=== PATIENT | male | born 1950 | race Caucasian/White ===

== ENCOUNTER 2017-03-26 21:11 | Emergency (ER) | payer MEDICARE ==
[2017-03-26 21:16] VITALS: TEMP 98.2
[2017-03-26] MEDS ORDERED: MAG HYDROX/AL HYDROX/SIMETH 30 ML, HYOSCYAMINE ELIXIR 10 ML, CIMETIDINE HCL 300 MG, LID... PO STA ×4 (21:37)
--- NOTE | 2017-03-26 21:40 | ED ---
Chest Pain HPI - General Source: patient Mode of arrival: ambulatory Limitations: no limitations - History of Present Illness MD Complaint: chest pain Onset/Timin -: hour(s) Onset: awoke with symptoms Pain Location: epigastric Pain Radiation: back Severity: moderate Quality: aching Consistency: constant Improves With: nothing Worsens With: eating Anginal Symptoms: nausea Treatments Prior to Arrival: none <Fabrizio Man - Last Filed: 03/27/17 01:34> <Maury Schwarz - Last Filed: 03/27/17 02:26> - General Chief Complaint: Chest Pain Stated Complaint: Chest Pain Time Seen by Provider: 03/26/17 21:22 - History of Present Illness Initial Comments: This patient is a 66-year-old man who presents to be evaluated for epigastric pain that he noticed after waking. The patient does state that he has similar episode a number of years ago, was seen by Dr. Gould. He states that they ended up treating him with a few days of [place] and the pain went away but no one can figure out exactly what was causing it. 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 (Fabrizio Man) - Related Data Home Medications Medication Instructions Recorded Confirmed Aspirin EC [Ecotrin Low Dose] 81 mg PO DAILY 03/26/17 03/26/17 Atorvastatin [Lipitor] 20 mg PO DAILY 03/26/17 03/26/17 Ibuprofen [Advil] 600 mg PO Q12H PRN 03/26/17 03/26/17 Losartan-Hctz 50-12.5 mg [Hyzaar 1 tab PO DAILY 03/26/17 03/26/17 50-12.5] Allergies Allergy/AdvReac Type Severity Reaction Status Date / Time levofloxacin [From Levaquin] Allergy Rash/Hives Verified 03/26/17 21:20 Penicillins Allergy Unknown Verified 03/26/17 21:20 Childhood Sulfa (Sulfonamide Allergy Rash/Hives Verified 03/26/17 21:20 Antibiotics) Review of Systems ROS Other: All systems not noted in ROS Statement are negative. Constitutional: Denies: fever, chills Respiratory: Denies: cough, dyspnea Cardiovascular: Denies: chest pain Gastrointestinal: Reports: as per HPI, abdominal pain, nausea. Denies: vomiting , diarrhea, constipation Genitourinary: Denies: dysuria, hematuria Musculoskeletal: Reports: back pain Skin: Denies: rash Neurological: Denies: headache, weakness, numbness <Fabrizio Man - Last Filed: 03/27/17 01:34> ROS Other: All systems not noted in ROS Statement are negative. <Maury Schwarz - Last Filed: 03/27/17 02:26> ROS Statement: Those systems with pertinent positive or pertinent negative responses have been documented in the HPI. EKG Findings - EKG Results: EKG: interpreted by ERMD, sinus rhythm, normal axis, normal QRS, normal ST/T, no acute changes EKG shows: bradycardia (Rate approximately 51 bpm) <Fabrizio Man - Last Filed: 03/27/17 01:34> Past Medical History Past Medical History: Atrial Fibrillation, Hyperlipidemia, Hypertension History of Any Multi-Drug Resistant Organisms: None Reported Past Surgical History: Cholecystectomy Past Psychological History: No Psychological Hx Reported Smoking Status: Former smoker Past Alcohol Use History: Occasional Past Drug Use History: None Reported <Fabrizio Man - Last Filed: 03/27/17 01:34> General Exam Limitations: no limitations General appearance: alert, in no apparent distress Head exam: Present: atraumatic, normocephalic Eye exam: Present: normal appearance. Absent: scleral icterus, conjunctival injection ENT exam: Present: normal oropharynx Neck exam: Present: normal inspection Respiratory exam: Present: normal lung sounds bilaterally. Absent: respiratory distress, wheezes, rales, rhonchi, stridor Cardiovascular Exam: Present: regular rate, normal rhythm, normal heart sounds. Absent: systolic murmur, diastolic murmur, rubs, gallop GI/Abdominal exam: Present: soft, tenderness (Mild epigastric tenderness without rebound or guarding), normal bowel sounds. Absent: distended, guarding , rebound, rigid, mass, pulsatile mass, hernia Extremities exam: Present: normal inspection, normal capillary refill. Absent: pedal edema, calf tenderness Back exam: Present: normal inspection. Absent: CVA tenderness (R), CVA tenderness (L) Neurological exam: Present: alert Skin exam: Present: warm, dry, intact, normal color. Absent: rash <Fabrizio Man - Last Filed: 03/27/17 01:34> Course <DonovanFabrizio - Last Filed: 03/27/17 01:34> <Maury Schwarz - Last Filed: 03/27/17 02:26> Vital Signs 03/26/17 03/26/17 21:13 23:15 Temperature 98.2 F Pulse Rate 52 L 53 L Respiratory 18 20 Rate Blood Pressure 165/89 160/100 O2 Sat by Pulse 98 Oximetry - Reevaluation(s) Reevaluation #1: 03/27/17 02:24 Chest x-ray shows no acute process. Computed tomography scan of the abdomen and pelvis shows no acute process. Patient reevaluated by myself, Dr. Schwarz. Patient resting comfortably in bed. Patient states he still has discomfort and requests Dilaudid. Patient would like to be discharged following this. Patient states discomfort is in the epigastric region and denies having any chest pain at all. Patient denies ever having chest discomfort. Sign out report from Dr. Fernández was also reported as epigastric pain, specifically not chest pain. Patient is explained limitations of cardiac testing in the emergency department and is explained that if there was any chest discomfort he would be advised to be admitted to the hospital. Patient refuses this and would like to go. Patient states he has had similar symptoms multiple times previously. Patient has even had his gallbladder taken out for this without improvement of symptoms. (Maury Schwarz) Disposition <Fabrizio Man - Last Filed: 03/27/17 01:34> Time of Disposition: 02:26 <Maury Schwarz - Last Filed: 03/27/17 02:26> Clinical Impression: Epigastric pain Disposition: HOME SELF-CARE Condition: Stable Instructions: Abdominal Pain (ED) Additional Instructions: Please follow-up tomorrow with your doctor. Return for chest pain, increased pain, nausea vomiting, worsening symptoms or any other concerns. Referrals: Gene White DO [Primary Care Provider] - 1-2 days
[2017-03-26 21:53] LABS: Basophils % (A) 1 %; CH 32.5; Eosinophils # (A) 0.2 k/uL (0-0.7); Eosinophils % (A) 3 %; HCT 39.8 % (39.0-53.0); HDW 2.36; HGB 13.5 gm/dL (13.0-17.5); Luc # (Auto) 0.13; Luc % (Auto) 2; Lymphocytes # (A) 1.9 k/uL (1.0-4.8); Lymphocytes % (A) 24 %; MCH 31.6 pg (25.0-35.0); MCHC 33.9 g/dL (31.0-37.0); MCV 93.2 fL (80.0-100.0); Mean Platelet Volume 7.4; Monocytes # (A) 0.4 k/uL (0-1.0); Monocytes % (A) 5 %; Neutrophils # (A) 5.4 k/uL (1.3-7.7); Neutrophils % (A) 67 %; RBC 4.27 m/uL (4.30-5.90); RDW 14.2 % (11.5-15.5); WBC 8.1 k/uL (3.8-10.6); WBC (Perox) 8.04
[2017-03-26 22:03] LABS: ALT 37 U/L (21-72); AST 30 U/L (17-59); Alkaline Phosphatase 53 U/L (38-126); Amylase 67 U/L (30-110); Anion Gap 8 mmol/L; Blood Urea Nitrogen 20 mg/dL (9-20); Calcium 9.7 mg/dL (8.4-10.2); Carbon Dioxide 27 mmol/L (22-30); Chloride 104 mmol/L (98-107); Glucose 120 mg/dL (74-99); Non-African American GFR(MDRD) >60 (>60 ml/min/1.73 sqM); Potassium 3.9 mmol/L (3.5-5.1); Sodium 139 mmol/L (137-145); Total Bilirubin 0.4 mg/dL (0.2-1.3)
--- NOTE | 2017-03-26 22:45 | XR ---
EXAM: XR Chest, 1 View CLINICAL HISTORY: Reason: Pain TECHNIQUE: Frontal view of the chest. COMPARISON: No relevant prior studies available. FINDINGS: Lungs: Unremarkable. No consolidation. Pleural space: Unremarkable. No pneumothorax. Heart: Unremarkable. No cardiomegaly. Mediastinum: Unremarkable. Bones/joints: Old fracture deformities no seen in the left eighth through 10th ribs. IMPRESSION: No acute findings.
[2017-03-26] MEDS ORDERED: MORPHINE SULFATE 4 MG/ML SYRINGE IV STA (23:15)
[2017-03-26] MEDS ORDERED: IOHEXOL 350 MG/ML 25 ML BOTTLE (ORAL USE) PO PRN (23:16)
[2017-03-26] MEDS ORDERED: RX INFO: IV CONTRAST WAS GIVEN 1 EACH MISC MISCELLANE PRN (23:16)
--- NOTE | 2017-03-27 01:46 | CT ---
EXAM: CT Abdomen and Pelvis With Intravenous Contrast CLINICAL HISTORY: Reason: Pain TECHNIQUE: Axial computed tomography images of the abdomen and pelvis with intravenous contrast. DLP is 581.90 mGy-cm. This CT exam was performed using one or more of the following dose reduction techniques: automated exposure control, adjustment of the mA and/or kV according to patient size, and/or use of iterative reconstruction technique. COMPARISON: No relevant prior studies available. FINDINGS: Lower thorax: No acute findings. ABDOMEN: Liver: Unremarkable. No mass. Gallbladder and bile ducts: Unremarkable. No calcified stones. No ductal dilation. Pancreas: Unremarkable. No mass. No ductal dilation. Spleen: Unremarkable. No splenomegaly. Adrenals: Unremarkable. No mass. Kidneys and ureters: Unremarkable. No solid mass. No hydronephrosis. Stomach and bowel: Unremarkable. No obstruction. No mucosal thickening. Appendix: No findings to suggest acute appendicitis. PELVIS: Bladder: Unremarkable. No mass. Reproductive: Unremarkable as visualized. ABDOMEN and PELVIS: Intraperitoneal space: Unremarkable. No free air. No significant fluid collection. Bones/joints: No acute fracture. No dislocation. Soft tissues: Unremarkable. Vasculature: Unremarkable. No abdominal aortic aneurysm. Lymph nodes: Unremarkable. No enlarged lymph nodes. IMPRESSION: Normal abdomen and pelvis CT.
[2017-03-27] MEDS ORDERED: HYDROmorphone 1 MG/ML 1 ML SYRINGE IVP STA (02:22)
[2017-03-27 03:16] VITALS: BP 136/71; PULSE 73; RESP 16
== END 2017-03-27 03:06 | disposition home or self-care (01) ==
LOC: EC 21:11
DX: R10.13 Epigastric pain (principal); R07.9 Chest pain, unspecified; R11.0 Nausea; I48.91 Unspecified atrial fibrillation; E78.5 Hyperlipidemia, unspecified; I10 Essential (primary) hypertension; Z90.49 Acquired absence of other specified parts of digestive tract; Z87.891 Personal history of nicotine dependence; Z79.82 Long term (current) use of aspirin; Z79.899 Other long term (current) drug therapy; Z88.0 Allergy status to penicillin; Z88.1 Allergy status to other antibiotic agents; Z88.2 Allergy status to sulfonamides
CPT/HCPCS: 99285 ×2; 96374 ×3; 96375 ×2; 96361; 99284; 36415 ×2; 93005; 80053 ×2; 82150 ×2; 83605; 83690 ×2; 84484; 85025 ×2; 81001; 71010; 74177; J2270; J1170; Q9967

== ENCOUNTER 2017-03-27 18:44 | Emergency (ER) | payer MEDICARE, OTHER ==
[2017-03-27 20:33] VITALS: TEMP 97.5
[2017-03-27] MEDS ORDERED: HYDROmorphone 1 MG/ML 1 ML SYRINGE IVP STA (20:39)
[2017-03-27] MEDS ORDERED: SODIUM CHLORIDE 0.9% 500 ML IV STA (20:39)
--- NOTE | 2017-03-27 20:56 | ED ---
Abdominal Pain HPI - General Chief Complaint: Abdominal Pain Stated Complaint: ABDOMINAL PAIN TO BACK Time Seen by Provider: 03/27/17 20:38 Source: patient, RN notes reviewed Mode of arrival: ambulatory Limitations: no limitations - History of Present Illness Initial Comments: This a 66-year-old male presents emergency Department chief complaint of epigastric and right upper abdominal pain. Patient states it started primary yesterday and worsened today. Patient states he was seen in emergency department had lab work, CT and x-rays no acute findings. Patient states that he's had problems like this in the past and they have never been able to figure out what causes his symptoms. Patient states he has an appointment with his primary care physician Dr. Zaman tomorrow. Patient denies any nausea, vomiting diarrhea constipation. He had a prior cholecystectomy. Patient states nothing seems to make symptoms better or worse at this time. He states he tried some ibuprofen at home with no relief. Denies any acid reflux. He states the pain radiates the right side does not radiate to his back. He denies any chest pain, shortness breath. Patient had no fevers no chills. - Related Data Home Medications Medication Instructions Recorded Confirmed Aspirin EC [Ecotrin Low Dose] 81 mg PO DAILY 03/26/17 03/27/17 Atorvastatin [Lipitor] 20 mg PO DAILY 03/26/17 03/27/17 Ibuprofen [Advil] 600 mg PO Q12H PRN 03/26/17 03/27/17 Losartan-Hctz 50-12.5 mg [Hyzaar 1 tab PO DAILY 03/26/17 03/27/17 50-12.5] Previous Rx's Medication Instructions Recorded Hydrocodone/Acetaminophen [[place] 1 tab PO Q6HR PRN #10 tab 03/27/17 5-325] Allergies Allergy/AdvReac Type Severity Reaction Status Date / Time levofloxacin [From Levaquin] Allergy Rash/Hives Verified 03/27/17 19:18 Penicillins Allergy Unknown Verified 03/27/17 19:18 Childhood Sulfa (Sulfonamide Allergy Rash/Hives Verified 03/27/17 19:18 Antibiotics) Review of Systems ROS Statement: Those systems with pertinent positive or pertinent negative responses have been documented in the HPI. ROS Other: All systems not noted in ROS Statement are negative. Past Medical History Past Medical History: Atrial Fibrillation, Hyperlipidemia, Hypertension History of Any Multi-Drug Resistant Organisms: None Reported Past Surgical History: Cholecystectomy Past Psychological History: No Psychological Hx Reported Smoking Status: Former smoker Past Alcohol Use History: Occasional Past Drug Use History: None Reported General Exam Limitations: no limitations General appearance: alert, in no apparent distress Respiratory exam: Present: normal lung sounds bilaterally. Absent: respiratory distress, wheezes, rales, rhonchi, stridor Cardiovascular Exam: Present: regular rate, normal rhythm, normal heart sounds. Absent: systolic murmur, diastolic murmur, rubs, gallop, clicks GI/Abdominal exam: Present: soft, tenderness (Mild epigastric and right upper quadrant tenderness), normal bowel sounds. Absent: distended, guarding, rebound , rigid Back exam: Absent: CVA tenderness (R), CVA tenderness (L) Skin exam: Present: warm, dry, intact, normal color. Absent: rash Course Vital Signs 03/27/17 03/27/17 03/27/17 19:16 20:32 21:28 Temperature 98.0 F 97.5 F L Pulse Rate 52 L 49 L 53 L Respiratory 18 17 19 Rate Blood Pressure 172/91 168/94 152/85 O2 Sat by Pulse 99 100 98 Oximetry Medical Decision Making - Medical Decision Making 66-year-old male present emergency department for abdominal pain. Patient was seen here yesterday and today. Patient's lab work is unremarkable. Patient CT was reviewed from yesterday show no acute abnormality. Patient had this problem in the past. He states he does feel better at this time. Patient was offered admission secondary to be the second visit for ongoing pain. Patient states that he wants to be discharged follow-up with Dr. Zaman tomorrow afternoon. - Lab Data Result diagrams: 03/27/17 20:56 03/27/17 20:56 Lab Results 03/27/17 03/27/17 03/27/17 Range/Units 20:56 20:56 20:56 WBC 7.5 (3.8-10.6) k/uL RBC 4.22 L (4.30-5.90) m/uL Hgb 13.5 (13.0-17.5) gm/dL Hct 38.7 L (39.0-53.0) % MCV 91.8 (80.0-100.0) fL MCH 32.1 (25.0-35.0) pg MCHC 35.0 (31.0-37.0) g/dL RDW 13.1 (11.5-15.5) % Plt Count 158 (150-450) k/uL Neutrophils % 75 % Lymphocytes % 17 % Monocytes % 5 % Eosinophils % 2 % Basophils % 0 % Neutrophils # 5.6 (1.3-7.7) k/uL Lymphocytes # 1.3 (1.0-4.8) k/uL Monocytes # 0.4 (0-1.0) k/uL Eosinophils # 0.2 (0-0.7) k/uL Basophils # 0.0 (0-0.2) k/uL Sodium 139 (137-145) mmol/L Potassium 3.8 (3.5-5.1) mmol/L Chloride 99 (98-107) mmol/L Carbon Dioxide 31 H (22-30) mmol/L Anion Gap 9 mmol/L BUN 15 (9-20) mg/dL Creatinine 0.80 (0.66-1.25) mg/dL Est GFR (MDRD) Af Amer >60 (>60 ml/min/1.73 sqM) Est GFR (MDRD) Non-Af >60 (>60 ml/min/1.73 sqM) Glucose 95 (74-99) mg/dL Plasma Lactic Acid Toy 1.0 (0.7-2.0) mmol/L Calcium 10.2 (8.4-10.2) mg/dL Total Bilirubin 0.7 (0.2-1.3) mg/dL AST 31 (17-59) U/L ALT 40 (21-72) U/L Alkaline Phosphatase 67 (38-126) U/L Total Protein 7.4 (6.3-8.2) g/dL Albumin 4.6 (3.5-5.0) g/dL Amylase 83 (30-110) U/L Lipase 109 (23-300) U/L Urine Color Urine Appearance (Clear) Urine pH (5.0-8.0) Ur Specific [place] (1.001-1.035) Urine Protein (Negative) Urine Glucose (UA) (Negative) Urine Ketones (Negative) Urine Blood (Negative) Urine Nitrite (Negative) Urine Bilirubin (Negative) Urine Urobilinogen (<2.0) mg/dL Ur Leukocyte Esterase (Negative) Urine RBC (0-5) /hpf Urine WBC (0-5) /hpf Amorphous Sediment (None) /hpf Urine Bacteria (None) /hpf Urine Mucus (None) /hpf 03/27/17 Range/Units 21:10 WBC (3.8-10.6) k/uL RBC (4.30-5.90) m/uL Hgb (13.0-17.5) gm/dL Hct (39.0-53.0) % MCV (80.0-100.0) fL MCH (25.0-35.0) pg MCHC (31.0-37.0) g/dL RDW (11.5-15.5) % Plt Count (150-450) k/uL Neutrophils % % Lymphocytes % % Monocytes % % Eosinophils % % Basophils % % Neutrophils # (1.3-7.7) k/uL Lymphocytes # (1.0-4.8) k/uL Monocytes # (0-1.0) k/uL Eosinophils # (0-0.7) k/uL Basophils # (0-0.2) k/uL Sodium (137-145) mmol/L Potassium (3.5-5.1) mmol/L Chloride (98-107) mmol/L Carbon Dioxide (22-30) mmol/L Anion Gap mmol/L BUN (9-20) mg/dL Creatinine (0.66-1.25) mg/dL Est GFR (MDRD) Af Amer (>60 ml/min/1.73 sqM) Est GFR (MDRD) Non-Af (>60 ml/min/1.73 sqM) Glucose (74-99) mg/dL Plasma Lactic Acid Toy (0.7-2.0) mmol/L Calcium (8.4-10.2) mg/dL Total Bilirubin (0.2-1.3) mg/dL AST (17-59) U/L ALT (21-72) U/L Alkaline Phosphatase (38-126) U/L Total Protein (6.3-8.2) g/dL Albumin (3.5-5.0) g/dL Amylase (30-110) U/L Lipase (23-300) U/L Urine Color Yellow Urine Appearance Cloudy (Clear) Urine pH 7.5 (5.0-8.0) Ur Specific [place] 1.018 (1.001-1.035) Urine Protein Negative (Negative) Urine Glucose (UA) Negative (Negative) Urine Ketones Trace H (Negative) Urine Blood Negative (Negative) Urine Nitrite Negative (Negative) Urine Bilirubin Negative (Negative) Urine Urobilinogen <2.0 (<2.0) mg/dL Ur Leukocyte Esterase Negative (Negative) Urine RBC 1 (0-5) /hpf Urine WBC 1 (0-5) /hpf Amorphous Sediment Rare H (None) /hpf Urine Bacteria Few H (None) /hpf Urine Mucus Rare H (None) /hpf Disposition Clinical Impression: Epigastric pain Disposition: HOME SELF-CARE Condition: Stable Instructions: Abdominal Pain (ED) Additional Instructions: Please return to the Emergency Department if symptoms worsen or any other concerns. Prescriptions: Hydrocodone/Acetaminophen [[place] 5-325] 1 tab PO Q6HR PRN #10 tab PRN Reason: Pain Referrals: Gene White DO [Doctor of Osteopathic Medicine] - 1-2 days Time of Disposition: 21:57
[2017-03-27 21:29] VITALS: RESP 19
[2017-03-27 21:29] LABS: Amorphous Sediment,Urine Rare /hpf; Appearance,Urine Cloudy (Clear); Bacteria,Urine Few /hpf; Bilirubin,Urine Negative (Negative); Glucose,Urine (UA) Negative (Negative); Ketones,Urine Trace (Negative); Leukocyte Esterase,Urine Negative (Negative); Mucus,Urine Rare /hpf; Nitrite,Urine Negative (Negative); PH, Urine 7.5 (5.0-8.0); Particle Count 7545; Protein,Urine Negative (Negative); RBC,Urine 1 /hpf (0-5); Specific Gravity,Urine 1.018 (1.001-1.035); UA Billing (MACRO vs. MICRO) MICRO; Urobilinogen,Urine <2.0 mg/dL (<2.0); WBC,Urine 1 /hpf (0-5)
[2017-03-27 21:29] LABS: ALT 40 U/L (21-72); AST 31 U/L (17-59); Alkaline Phosphatase 67 U/L (38-126); Amylase 83 U/L (30-110); Anion Gap 9 mmol/L; Blood Urea Nitrogen 15 mg/dL (9-20); Calcium 10.2 mg/dL (8.4-10.2); Carbon Dioxide 31 mmol/L (22-30); Chloride 99 mmol/L (98-107); Glucose 95 mg/dL (74-99); Non-African American GFR(MDRD) >60 (>60 ml/min/1.73 sqM); Potassium 3.8 mmol/L (3.5-5.1); Sodium 139 mmol/L (137-145); Total Bilirubin 0.7 mg/dL (0.2-1.3); Total Protein 7.4 g/dL (6.3-8.2)
[2017-03-27 21:35] LABS: Basophils % (A) 0 %; CH 32.1; CHCM 35.1; Eosinophils # (A) 0.2 k/uL (0-0.7); Eosinophils % (A) 2 %; HCT 38.7 % (39.0-53.0); HDW 2.42; HGB 13.5 gm/dL (13.0-17.5); Luc # (Auto) 0.08; Luc % (Auto) 1; Lymphocytes # (A) 1.3 k/uL (1.0-4.8); Lymphocytes % (A) 17 %; MCH 32.1 pg (25.0-35.0); MCV 91.8 fL (80.0-100.0); Mean Platelet Volume 6.8; Monocytes # (A) 0.4 k/uL (0-1.0); Monocytes % (A) 5 %; Neutrophils # (A) 5.6 k/uL (1.3-7.7); Neutrophils % (A) 75 %; RBC 4.22 m/uL (4.30-5.90); RDW 13.1 % (11.5-15.5); WBC 7.5 k/uL (3.8-10.6); WBC (Perox) 7.54
[2017-03-27 22:08] VITALS: BP 170/94; PULSE 57
== END 2017-03-27 22:08 | disposition home or self-care (01) ==
LOC: EC 18:44
DX: R10.13 Epigastric pain (principal); R10.11 Right upper quadrant pain; M54.9 Dorsalgia, unspecified; E78.5 Hyperlipidemia, unspecified; I10 Essential (primary) hypertension; Z87.891 Personal history of nicotine dependence; Z79.82 Long term (current) use of aspirin; Z79.899 Other long term (current) drug therapy; Z88.0 Allergy status to penicillin; Z88.1 Allergy status to other antibiotic agents; Z88.2 Allergy status to sulfonamides; Z90.49 Acquired absence of other specified parts of digestive tract
CPT/HCPCS: 36415; 80053; 82150; 83605; 83690; 85025; 81001; 99284; 96374; 96361; J1170

== ENCOUNTER 2017-09-05 16:56 | Emergency (ER) | payer MEDICARE, OTHER ==
[2017-09-05 17:19] LABS: Basophils % (A) 0 %; Eosinophils # (A) 0.1 k/uL (0-0.7); Eosinophils % (A) 1 %; HCT 42.9 % (39.0-53.0); HGB 14.3 gm/dL (13.0-17.5); Lymphocytes # (A) 0.9 k/uL (1.0-4.8); Lymphocytes % (A) 12 %; MCH 30.7 pg (25.0-35.0); MCHC 33.3 g/dL (31.0-37.0); MCV 92.2 fL (80.0-100.0); Mean Platelet Volume 6.6; Monocytes # (A) 0.2 k/uL (0-1.0); Monocytes % (A) 3 %; Neutrophils # (A) 5.9 k/uL (1.3-7.7); Neutrophils % (A) 83 %; Platelet Count 233 k/uL (150-450); RBC 4.65 m/uL (4.30-5.90); RDW 12.6 % (11.5-15.5); WBC 7.2 k/uL (3.8-10.6)
[2017-09-05 17:26] LABS: ALT 34 U/L (21-72); AST 26 U/L (17-59); Albumin 3.9 g/dL (3.5-5.0); Alkaline Phosphatase 61 U/L (38-126); Amylase 54 U/L (30-110); Anion Gap 12 mmol/L; Blood Urea Nitrogen 21 mg/dL (9-20); Calcium 9.1 mg/dL (8.4-10.2); Carbon Dioxide 25 mmol/L (22-30); Chloride 101 mmol/L (98-107); Glucose 121 mg/dL (74-99); Lipase 104 U/L (23-300); Potassium 3.7 mmol/L (3.5-5.1); Sodium 138 mmol/L (137-145); Total Bilirubin 0.5 mg/dL (0.2-1.3); Total Protein 6.6 g/dL (6.3-8.2)
[2017-09-05] MEDS ORDERED: DICYCLOMINE 20 MG TAB PO STA (17:58)
[2017-09-05] MEDS ORDERED: SODIUM CHLORIDE 0.9% 1,000 ML IV ONE (17:59)
[2017-09-05] MEDS ORDERED: ONDANSETRON 4 MG/2 ML VIAL IVP STA (18:10)
--- NOTE | 2017-09-05 18:12 | ED ---
Nausea/Vomiting/Diarrhea HPI - General Chief complaint: Nausea/Vomiting/Diarrhea Stated complaint: NVD Time Seen by Provider: 09/05/17 17:48 Source: patient, RN notes reviewed Mode of arrival: ambulatory Limitations: no limitations - History of Present Illness Initial comments: 67-year-old male presents emergency Department chief complaint of diarrhea. Patient states that he was started on doxycycline on Monday by medics rest. Patient states 5 minutes she was on azithromycin for acute bronchitis. Patient was also given steroids by his it help desk analyst. Patient states that he developed diarrhea last night and states that 20-30 episodes. He states it's all water. He has had salmonella in the past. Patient denies any fever or chills. Patient states that his lungs seem to be improving. He believes these had doxycycline the past and had no difficulty but he said this is unbearable. He did have some nausea vomiting last night. - Related Data Home Medications Medication Instructions Recorded Confirmed Aspirin EC [Ecotrin Low Dose] 81 mg PO DAILY 03/26/17 09/05/17 Atorvastatin [Lipitor] 20 mg PO DAILY 03/26/17 09/05/17 Losartan-Hctz 50-12.5 mg [Hyzaar 1 tab PO DAILY 03/26/17 09/05/17 50-12.5] Doxycycline Hyclate [Vibramycin] 100 mg PO BID 09/05/17 09/05/17 predniSONE See Taper PO DIRECTED 09/05/17 09/05/17 Allergies Allergy/AdvReac Type Severity Reaction Status Date / Time levofloxacin [From Levaquin] Allergy Rash/Hives Verified 09/05/17 18:34 Penicillins Allergy Unknown Verified 09/05/17 18:34 Childhood Sulfa (Sulfonamide Allergy Rash/Hives Verified 09/05/17 18:34 Antibiotics) Review of Systems ROS Statement: Those systems with pertinent positive or pertinent negative responses have been documented in the HPI. ROS Other: All systems not noted in ROS Statement are negative. Past Medical History Past Medical History: Atrial Fibrillation, Hyperlipidemia, Hypertension History of Any Multi-Drug Resistant Organisms: None Reported Past Surgical History: Cholecystectomy Past Psychological History: No Psychological Hx Reported Smoking Status: Former smoker Past Alcohol Use History: Occasional Past Drug Use History: None Reported General Exam Limitations: no limitations General appearance: alert, in no apparent distress Head exam: Present: atraumatic, normocephalic, normal inspection Neck exam: Present: normal inspection. Absent: tenderness, meningismus, lymphadenopathy Respiratory exam: Present: normal lung sounds bilaterally. Absent: respiratory distress, wheezes, rales, rhonchi, stridor Cardiovascular Exam: Present: regular rate, normal rhythm, normal heart sounds. Absent: systolic murmur, diastolic murmur, rubs, gallop, clicks GI/Abdominal exam: Present: soft, normal bowel sounds. Absent: distended, tenderness, guarding, rebound, rigid Back exam: Absent: CVA tenderness (R), CVA tenderness (L) Skin exam: Present: warm, dry, intact, normal color. Absent: rash Course Vital Signs 09/05/17 09/05/17 17:01 19:18 Temperature 97.4 F L Pulse Rate 81 60 Respiratory 18 18 Rate Blood Pressure 110/77 118/81 O2 Sat by Pulse 97 97 Oximetry - Reevaluation(s) Reevaluation #1: 09/05/17 19:32 Patient was updated on lab results. Patient is not had a bowel movement here. Patient states symptoms seem to be improving he has no nausea. We did discuss that this may be a viral diarrhea versus medication reaction. Patient states that is actually better from his cough congestion states that he discontinued his medications follow-up with primary care physician or it help desk analyst and return for any worsening symptoms. Medical Decision Making - Medical Decision Making 67-year-old male presented from for diarrhea. Patient lab work is unremarkable. Patient is improving here in emergency department this may be viral versus medication reaction. Patient advised to increase fluids and return for any worsening symptoms. - Lab Data Result diagrams: 09/05/17 17:04 09/05/17 17:04 Lab Results 09/05/17 09/05/17 09/05/17 Range/Units 17:04 17:04 18:38 WBC 7.2 (3.8-10.6) k/uL RBC 4.65 (4.30-5.90) m/uL Hgb 14.3 (13.0-17.5) gm/dL Hct 42.9 (39.0-53.0) % MCV 92.2 (80.0-100.0) fL MCH 30.7 (25.0-35.0) pg MCHC 33.3 (31.0-37.0) g/dL RDW 12.6 (11.5-15.5) % Plt Count 233 (150-450) k/uL Neutrophils % 83 % Lymphocytes % 12 % Monocytes % 3 % Eosinophils % 1 % Basophils % 0 % Neutrophils # 5.9 (1.3-7.7) k/uL Lymphocytes # 0.9 L (1.0-4.8) k/uL Monocytes # 0.2 (0-1.0) k/uL Eosinophils # 0.1 (0-0.7) k/uL Basophils # 0.0 (0-0.2) k/uL Sodium 138 (137-145) mmol/L Potassium 3.7 (3.5-5.1) mmol/L Chloride 101 (98-107) mmol/L Carbon Dioxide 25 (22-30) mmol/L Anion Gap 12 mmol/L BUN 21 H (9-20) mg/dL Creatinine 0.87 (0.66-1.25) mg/dL Est GFR (MDRD) Af Amer >60 (>60 ml/min/1.73 sqM) Est GFR (MDRD) Non-Af >60 (>60 ml/min/1.73 sqM) Glucose 121 H (74-99) mg/dL Calcium 9.1 (8.4-10.2) mg/dL Total Bilirubin 0.5 (0.2-1.3) mg/dL AST 26 (17-59) U/L ALT 34 (21-72) U/L Alkaline Phosphatase 61 (38-126) U/L Total Protein 6.6 (6.3-8.2) g/dL Albumin 3.9 (3.5-5.0) g/dL Amylase 54 (30-110) U/L Lipase 104 (23-300) U/L Urine Color Yellow Urine Appearance Cloudy (Clear) Urine pH 6.0 (5.0-8.0) Ur Specific [place] 1.025 (1.001-1.035) Urine Protein 1+ H (Negative) Urine Glucose (UA) Negative (Negative) Urine Ketones Negative (Negative) Urine Blood Negative (Negative) Urine Nitrite Negative (Negative) Urine Bilirubin Negative (Negative) Urine Urobilinogen 2.0 (<2.0) mg/dL Ur Leukocyte Esterase Negative (Negative) Urine RBC 4 (0-5) /hpf Urine WBC 2 (0-5) /hpf Calcium Oxalate Crystal Few H (None) /hpf Urine Mucus Many H (None) /hpf Disposition Clinical Impression: Diarrhea Disposition: HOME SELF-CARE Condition: Stable Instructions: Acute Diarrhea (ED) Additional Instructions: Please return to the Emergency Department if symptoms worsen or any other concerns. Referrals: Grabiel Zaman MD [Primary Care Provider] - 1-2 days Time of Disposition: 19:34
[2017-09-05 18:57] LABS: Appearance,Urine Cloudy (Clear); Bilirubin,Urine Negative (Negative); Blood,Urine Negative (Negative); Calcium Oxalate Crystals,Urine Few /hpf; Color,Urine Yellow; Glucose,Urine (UA) Negative (Negative); Ketones,Urine Negative (Negative); Leukocyte Esterase,Urine Negative (Negative); Mucus,Urine Many /hpf; Nitrite,Urine Negative (Negative); Protein,Urine 1+ (Negative); RBC,Urine 4 /hpf (0-5); Specific Gravity,Urine 1.025 (1.001-1.035); WBC,Urine 2 /hpf (0-5)
[2017-09-05 19:53] VITALS: BP 119/79; PULSE 66; RESP 15; TEMP 97.1
== END 2017-09-05 19:53 | disposition home or self-care (01) ==
LOC: EC 16:56
DX: R19.7 Diarrhea, unspecified (principal); R11.2 Nausea with vomiting, unspecified; J20.9 Acute bronchitis, unspecified; E78.5 Hyperlipidemia, unspecified; I10 Essential (primary) hypertension; Z87.891 Personal history of nicotine dependence; Z79.52 Long term (current) use of systemic steroids; Z79.82 Long term (current) use of aspirin; Z79.899 Other long term (current) drug therapy; Z88.0 Allergy status to penicillin; Z88.1 Allergy status to other antibiotic agents; Z88.2 Allergy status to sulfonamides; Z90.49 Acquired absence of other specified parts of digestive tract
CPT/HCPCS: 36415; 80053; 82150; 83690; 85025; 81001; 99284; 96374; 96361 ×2; J2405

== ENCOUNTER 2018-06-18 08:02 | Day surgery (SDC) | payer MEDICARE, OTHER ==
[2018-06-14 11:15] VITALS: BMI 21.8
[~2018-06-18 08:02] MED LIST: LACTATED RINGERS 1,000 ML IV SCH; LIDOCAINE 1% 20 ML VIAL (10MG/ML) FOR IV START INTRADERMA PRN
[2018-06-18 09:03] VITALS: TEMP 97.4
[2018-06-18] MEDS ORDERED: PROPOFOL 10 MG/ML 20 ML VIAL IV ONE (09:43)
--- NOTE | 2018-06-18 10:19 | P.PCN ---
Date of Procedure: 06/18/18 Procedure(s) Performed: Procedure: Total colonoscopy. Preoperative diagnosis: Screening for neoplasia. Postoperative diagnosis: Exam within normal limits. Preparation: HalfLytely prep. Sedation: Was provided by anesthesia. Brief clinical history: The patient is a 67-year-old male who is scheduled for this evaluation for screening for neoplasia age being his risk factor. He had a prior exam more than 10 years ago. He has no abdominal complaints, bleeding or anemia. Procedure: With the patient on his left lateral decubitus position and after informed consent and adequate sedation, the perianal area was inspected and it did not show any fissures or fistulas. There were no masses felt on digital rectal examination. The Olympus CFQ 160L video colonoscope was then inserted in the rectum in the usual fashion and advanced to the cecum. The preparation was good. The mucosa appeared healthy. No polyps or tumors were seen or any obvious diverticular disease or other pathology. I retroflexed the endoscope in the rectum before the endoscope was withdrawn. The patient tolerated the procedure well. Plan: The patient was reassured. He will follow up with you as planned and I recommended repeat exam in 10 years.
[2018-06-18 10:34] VITALS: RESP 16
[2018-06-18 10:48] VITALS: BP 127/82; PULSE 50
== END 2018-06-18 11:00 | disposition home or self-care (01) ==
LOC: ORWHC2ENDO 08:02
DX: Z12.11 Encounter for screening for malignant neoplasm of colon (principal); I48.91 Unspecified atrial fibrillation; I10 Essential (primary) hypertension; E78.5 Hyperlipidemia, unspecified; Z79.82 Long term (current) use of aspirin; Z79.899 Other long term (current) drug therapy; Z88.1 Allergy status to other antibiotic agents; Z88.0 Allergy status to penicillin; Z88.2 Allergy status to sulfonamides; Z87.891 Personal history of nicotine dependence
CPT/HCPCS: J2704; G0121

== ENCOUNTER 2018-07-05 02:18 | Emergency (ER) | payer MEDICARE, OTHER ==
[2018-07-05] MEDS ORDERED: SODIUM CHLORIDE 0.9% 1,000 ML IV STA (02:47)
[2018-07-05] MEDS ORDERED: ONDANSETRON 4 MG/2 ML VIAL IVP STA (02:47)
[2018-07-05] MEDS ORDERED: SODIUM CHLORIDE 0.9% 2,000 ML IV STA (02:47)
--- NOTE | 2018-07-05 02:52 | ED ---
Abdominal Pain HPI - General Chief Complaint: Abdominal Pain Stated Complaint: Abd pain Time Seen by Provider: 07/05/18 02:47 Source: patient Mode of arrival: ambulatory Limitations: no limitations - History of Present Illness Initial Comments: Rasheed is a pleasant 68-year-old gentleman with a history of alcohol-induced pancreatitis for which she was admitted to a hospital in [place] in October of this year. Patient reports that today he had 4 glasses of wine he is now experiencing severe epigastric abdominal pain identical to previous episode of pancreatitis. - Related Data Home Medications Medication Instructions Recorded Confirmed Aspirin EC [Ecotrin Low Dose] 81 mg PO DAILY 03/26/17 07/05/18 Atorvastatin [Lipitor] 20 mg PO DAILY 03/26/17 07/05/18 Losartan-Hctz 50-12.5 mg [Hyzaar 1 tab PO DAILY 03/26/17 07/05/18 50-12.5] Previous Rx's Medication Instructions Recorded Ondansetron [Zofran ODT] 4 mg PO Q8HR #12 tab 07/05/18 Allergies Allergy/AdvReac Type Severity Reaction Status Date / Time levofloxacin [From Levaquin] Allergy Rash/Hives Verified 06/14/18 11:09 Penicillins Allergy Unknown Verified 06/14/18 11:09 Childhood Sulfa (Sulfonamide Allergy Rash/Hives Verified 06/14/18 11:09 Antibiotics) Review of Systems ROS Statement: Those systems with pertinent positive or pertinent negative responses have been documented in the HPI. ROS Other: All systems not noted in ROS Statement are negative. Past Medical History Past Medical History: Atrial Fibrillation, Hyperlipidemia, Hypertension, Skin Disorder Additional Past Medical History / Comment(s): states "has a bancaid to opened area rt hand from precancerous lesion being removed", alcohol-induced pancreatitis History of Any Multi-Drug Resistant Organisms: None Reported Past Surgical History: Cholecystectomy Past Anesthesia/Blood Transfusion Reactions: No Reported Reaction Past Psychological History: No Psychological Hx Reported Smoking Status: Former smoker - Past Family History Father Family Medical History: Cancer Additional Family Medical History / Comment(s): lung General Exam Limitations: no limitations Course Vital Signs 07/05/18 07/05/18 02:22 05:15 Temperature 97.5 F L 98.6 F Pulse Rate 61 54 L Respiratory 20 19 Rate Blood Pressure 116/79 123/85 O2 Sat by Pulse 98 98 Oximetry Medical Decision Making - Medical Decision Making The patient was seen and evaluated, history is obtained from patient and at bedside Patient with a history of alcohol-induced pink return as, patient reports excessive drinking of having 4 glasses of wine today, now experiencing epigastric abdominal discomfort nausea similar to previous episode of pancreatitis Labs and imaging were ordered KUB x-ray with no acute findings Labs with mildly elevated lipase at 431 Labs otherwise with no significant abnormalities Patient reports significant improvement in discomfort after morphine. Results were discussed with the patient, I advised the patient at this time he can be placed in observation for intractable abdominal pain or if he would prefer he can be discharged home. Patient would prefer discharge home. Patient will be given IM morphine for pain management prior to discharge. Return parameters were discussed all questions pertaining to care were answered, patient was advised to abstain from alcohol and to follow-up with gastroenterology. - Lab Data Result diagrams: 07/05/18 02:45 07/05/18 02:45 Lab Results 07/05/18 07/05/18 07/05/18 Range/Units 02:45 02:45 02:45 WBC 7.0 (3.8-10.6) k/uL RBC 4.16 L (4.30-5.90) m/uL Hgb 12.5 L (13.0-17.5) gm/dL Hct 38.3 L (39.0-53.0) % MCV 92.0 (80.0-100.0) fL MCH 29.9 (25.0-35.0) pg MCHC 32.5 (31.0-37.0) g/dL RDW 13.6 (11.5-15.5) % Plt Count 162 (150-450) k/uL Neutrophils % 61 % Lymphocytes % 28 % Monocytes % 4 % Eosinophils % 4 % Basophils % 1 % Neutrophils # 4.3 (1.3-7.7) k/uL Lymphocytes # 2.0 (1.0-4.8) k/uL Monocytes # 0.3 (0-1.0) k/uL Eosinophils # 0.3 (0-0.7) k/uL Basophils # 0.0 (0-0.2) k/uL PT (9.0-12.0) sec INR (<1.2) APTT (22.0-30.0) sec Sodium 143 (137-145) mmol/L Potassium 4.6 (3.5-5.1) mmol/L Chloride 107 (98-107) mmol/L Carbon Dioxide 25 (22-30) mmol/L Anion Gap 11 mmol/L BUN 24 H (9-20) mg/dL Creatinine 0.92 (0.66-1.25) mg/dL Est GFR (CKD-EPI)AfAm >90 (>60 ml/min/1.73 sqM) Est GFR (CKD-EPI)NonAf 85 (>60 ml/min/1.73 sqM) Glucose 94 (74-99) mg/dL Calcium 9.3 (8.4-10.2) mg/dL Total Bilirubin 0.2 (0.2-1.3) mg/dL AST 32 (17-59) U/L ALT 33 (21-72) U/L Alkaline Phosphatase 42 (38-126) U/L Total Creatine Kinase 89 (55-170) U/L CK-MB (CK-2) 1.9 (0.0-2.4) ng/mL CK-MB (CK-2) Rel Index 2.1 Troponin I <0.012 (0.000-0.034) ng/mL Total Protein 6.7 (6.3-8.2) g/dL Albumin 4.1 (3.5-5.0) g/dL Amylase 98 (30-110) U/L Lipase 431 H (23-300) U/L 07/05/18 Range/Units 02:45 WBC (3.8-10.6) k/uL RBC (4.30-5.90) m/uL Hgb (13.0-17.5) gm/dL Hct (39.0-53.0) % MCV (80.0-100.0) fL MCH (25.0-35.0) pg MCHC (31.0-37.0) g/dL RDW (11.5-15.5) % Plt Count (150-450) k/uL Neutrophils % % Lymphocytes % % Monocytes % % Eosinophils % % Basophils % % Neutrophils # (1.3-7.7) k/uL Lymphocytes # (1.0-4.8) k/uL Monocytes # (0-1.0) k/uL Eosinophils # (0-0.7) k/uL Basophils # (0-0.2) k/uL PT 9.5 (9.0-12.0) sec INR 0.9 (<1.2) APTT 22.9 (22.0-30.0) sec Sodium (137-145) mmol/L Potassium (3.5-5.1) mmol/L Chloride (98-107) mmol/L Carbon Dioxide (22-30) mmol/L Anion Gap mmol/L BUN (9-20) mg/dL Creatinine (0.66-1.25) mg/dL Est GFR (CKD-EPI)AfAm (>60 ml/min/1.73 sqM) Est GFR (CKD-EPI)NonAf (>60 ml/min/1.73 sqM) Glucose (74-99) mg/dL Calcium (8.4-10.2) mg/dL Total Bilirubin (0.2-1.3) mg/dL AST (17-59) U/L ALT (21-72) U/L Alkaline Phosphatase (38-126) U/L Total Creatine Kinase (55-170) U/L CK-MB (CK-2) (0.0-2.4) ng/mL CK-MB (CK-2) Rel Index Troponin I (0.000-0.034) ng/mL Total Protein (6.3-8.2) g/dL Albumin (3.5-5.0) g/dL Amylase (30-110) U/L Lipase (23-300) U/L Disposition Clinical Impression: Alcohol induced acute pancreatitis Disposition: HOME SELF-CARE Condition: Stable Instructions: Pancreatitis (ED) Prescriptions: Ondansetron [Zofran ODT] 4 mg PO Q8HR #12 tab Is patient prescribed a controlled substance at d/c from ED?: No Referrals: Grabiel Zaman MD [Primary Care Provider] - 1-2 days Leo Healy MD [STAFF PHYSICIAN] - 1-2 days Time of Disposition: 04:55
[2018-07-05 03:08] LABS: Basophils % (A) 1 %; Eosinophils # (A) 0.3 k/uL (0-0.7); Eosinophils % (A) 4 %; HCT 38.3 % (39.0-53.0); HGB 12.5 gm/dL (13.0-17.5); Lymphocytes % (A) 28 %; MCH 29.9 pg (25.0-35.0); MCHC 32.5 g/dL (31.0-37.0); Mean Platelet Volume 6.6; Monocytes # (A) 0.3 k/uL (0-1.0); Monocytes % (A) 4 %; Neutrophils # (A) 4.3 k/uL (1.3-7.7); Neutrophils % (A) 61 %; Platelet Count 162 k/uL (150-450); RBC 4.16 m/uL (4.30-5.90); RDW 13.6 % (11.5-15.5)
[2018-07-05 03:11] LABS: ALT 33 U/L (21-72); AST 32 U/L (17-59); Albumin 4.1 g/dL (3.5-5.0); Alkaline Phosphatase 42 U/L (38-126); Amylase 98 U/L (30-110); Anion Gap 11 mmol/L; Blood Urea Nitrogen 24 mg/dL (9-20); Calcium 9.3 mg/dL (8.4-10.2); Carbon Dioxide 25 mmol/L (22-30); Chloride 107 mmol/L (98-107); Glucose 94 mg/dL (74-99); Lipase 431 U/L (23-300); Potassium 4.6 mmol/L (3.5-5.1); Sodium 143 mmol/L (137-145); Total Bilirubin 0.2 mg/dL (0.2-1.3); Total Protein 6.7 g/dL (6.3-8.2)
[2018-07-05 03:12] LABS: INR 0.9 (<1.2); Partial Thromboplastin Time 22.9 sec (22.0-30.0); Prothrombin Time 9.5 sec (9.0-12.0)
[2018-07-05 03:21] LABS: Creatine Kinase 89 U/L (55-170)
--- NOTE | 2018-07-05 03:34 | XR ---
EXAMINATION TYPE: XR KUB DATE OF EXAM: 07/05/2018 COMPARISON: 08/08/2011 HISTORY: Abdominal pain TECHNIQUE: 2 views upright FINDINGS: There is no sign of intestinal obstruction or pneumoperitoneum. Fecal pattern is normal. Th ere are clips from cholecystectomy. Lung bases are clear. There are no pathologic calcifications over the kidneys. IMPRESSION: Nonacute abdomen. No change.
[2018-07-05 03:35] LABS: Creatine Kinase MB 1.9 ng/mL (0.0-2.4); Troponin I <0.012 ng/mL (0.000-0.034)
[2018-07-05] MEDS ORDERED: MORPHINE SULFATE 4 MG/ML SYRINGE IVP STA (03:40)
[2018-07-05] MEDS ORDERED: MORPHINE SULFATE 4 MG/ML SYRINGE IM STA (04:54)
[2018-07-05 05:19] VITALS: BP 123/85; PULSE 54; RESP 19; TEMP 98.6
== END 2018-07-05 05:18 | disposition home or self-care (01) ==
LOC: EC 02:18
DX: K85.20 Alcohol induced acute pancreatitis without necrosis or infection (principal); R74.8 Abnormal levels of other serum enzymes; I48.91 Unspecified atrial fibrillation; E78.5 Hyperlipidemia, unspecified; I10 Essential (primary) hypertension; Z87.891 Personal history of nicotine dependence; Z79.82 Long term (current) use of aspirin; Z79.899 Other long term (current) drug therapy; Z88.0 Allergy status to penicillin; Z88.1 Allergy status to other antibiotic agents; Z88.2 Allergy status to sulfonamides; Z90.49 Acquired absence of other specified parts of digestive tract
CPT/HCPCS: 36415; 80053; 82150; 82550; 82553; 83690; 84484; 85025; 85610; 85730; 74018; 99284; 96374; 96375; 96361 ×2; 96372; J2270; J2405

== ENCOUNTER 2018-07-06 04:54 | Observation (INO) | payer MEDICARE, OTHER ==
[2018-07-06] MEDS ORDERED: MORPHINE SULFATE 4 MG/ML SYRINGE IV STA (05:03)
[2018-07-06] MEDS ORDERED: SODIUM CHLORIDE 0.9% 1,000 ML IV STA ×2 (05:03)
[2018-07-06] MEDS ORDERED: NALOXONE 0.4 MG/ML 1 ML VIAL IV PRN (05:08)
[2018-07-06] MEDS ORDERED: ONDANSETRON 4 MG/2 ML VIAL IVP PRN (05:08)
[2018-07-06 05:19] LABS: Basophils % (A) 0 %; Eosinophils # (A) 0.2 k/uL (0-0.7); Eosinophils % (A) 3 %; HCT 37.2 % (39.0-53.0); HGB 12.8 gm/dL (13.0-17.5); Lymphocytes # (A) 1.6 k/uL (1.0-4.8); Lymphocytes % (A) 21 %; MCH 30.8 pg (25.0-35.0); MCHC 34.5 g/dL (31.0-37.0); MCV 89.4 fL (80.0-100.0); Mean Platelet Volume 6.9; Monocytes # (A) 0.4 k/uL (0-1.0); Monocytes % (A) 6 %; Neutrophils # (A) 5.5 k/uL (1.3-7.7); Neutrophils % (A) 69 %; Platelet Count 142 k/uL (150-450); RBC 4.16 m/uL (4.30-5.90); RDW 13.3 % (11.5-15.5); WBC 7.9 k/uL (3.8-10.6)
--- NOTE | 2018-07-06 05:25 | ED ---
Abdominal Pain HPI - General Chief Complaint: Abdominal Pain Stated Complaint: abd pain Time Seen by Provider: 07/06/18 05:02 Source: patient Mode of arrival: ambulatory Limitations: no limitations - History of Present Illness Initial Comments: Rasheed is a 68-year-old gentleman with a past medical history of alcohol- induced pancreatitis which was diagnosed in October of this year while he was living in [place]. Patient reports he's been refraining from alcohol until the past month. He reports he's had occasional glasses of wine and has tolerated it well. Patient reports he had 4 glasses wine yesterday and developed severe epigastric abdominal pain and nausea which is identical to previous episode of pancreatitis. Patient was seen and evaluated in our emergency department he was noted to have a lipase of mid 400s, his pain was managed with a single dose of morphine his nausea resolved with Zofran. He was given a dose of morphine IM and discharged home. Patient reports that upon returning home he drinks some chicken soup and was feeling okay he then decided to have a milkshake. Patient reports his pain increased significantly which prompted him to return to the ER for further management. - Related Data Home Medications Medication Instructions Recorded Confirmed Aspirin EC [Ecotrin Low Dose] 81 mg PO DAILY 03/26/17 07/05/18 Atorvastatin [Lipitor] 20 mg PO DAILY 03/26/17 07/05/18 Losartan-Hctz 50-12.5 mg [Hyzaar 1 tab PO DAILY 03/26/17 07/05/18 50-12.5] Previous Rx's Medication Instructions Recorded Ondansetron [Zofran ODT] 4 mg PO Q8HR #12 tab 07/05/18 Allergies Allergy/AdvReac Type Severity Reaction Status Date / Time levofloxacin [From Levaquin] Allergy Rash/Hives Verified 06/14/18 11:09 Penicillins Allergy Unknown Verified 06/14/18 11:09 Childhood Sulfa (Sulfonamide Allergy Rash/Hives Verified 06/14/18 11:09 Antibiotics) Review of Systems ROS Statement: Those systems with pertinent positive or pertinent negative responses have been documented in the HPI. ROS Other: All systems not noted in ROS Statement are negative. Past Medical History Past Medical History: Atrial Fibrillation, Hyperlipidemia, Hypertension, Skin Disorder Additional Past Medical History / Comment(s): states rt hand from precancerous lesion being removed", alcohol-induced pancreatitis History of Any Multi-Drug Resistant Organisms: None Reported Past Surgical History: Cholecystectomy Past Anesthesia/Blood Transfusion Reactions: No Reported Reaction Past Psychological History: No Psychological Hx Reported Smoking Status: Former smoker Past Alcohol Use History: Occasional Past Drug Use History: None Reported - Past Family History Father Family Medical History: Cancer Additional Family Medical History / Comment(s): lung General Exam - General Exam Comments Initial Comments: Physical Exam GENERAL: Patient is well-developed and well-nourished. Patient is nontoxic and well- hydrated and is in no distress. HENT: Normocephalic, Atraumatic. EYES: PERRL, EOMI PULMONARY: Unlabored respirations. No audible rales rhonchi or wheezing was noted. CARDIOVASCULAR: There is a regular rate and rhythm without any murmurs gallops or rubs. ABDOMEN: Tenderness to palpation epigastrium Soft with normal bowel sounds. SKIN: Nonhealing lesion on the dorsum of the right hand : Deferred NEUROLOGIC: Patient is alert and oriented x3. Moving all extremities spontaneously MUSCULOSKELETAL: Normal extremities with adequate strength and full range of motion. No lower extremity swelling or edema. No calf tenderness. PSYCHIATRIC: Normal psychiatric evaluation. Limitations: no limitations Limitations: no limitations Course Vital Signs 07/06/18 04:55 Temperature 97.4 F L Pulse Rate 62 Respiratory 16 Rate Blood Pressure 150/98 O2 Sat by Pulse 98 Oximetry Medical Decision Making - Medical Decision Making She was seen and evaluated immediately upon return to the emergency department. Familiar with this patient as I evaluated him only hours ago. Patient attempted to manage mild pancreatitis at home however the pain is unbearable the patient return to the ER for further management. At this time I will repeat the labs and plan to admit the patient for pain management and alcohol-induced pancreatitis - Lab Data Result diagrams: 07/06/18 05:05 Lab Results 07/06/18 Range/Units 05:05 WBC 7.9 (3.8-10.6) k/uL RBC 4.16 L (4.30-5.90) m/uL Hgb 12.8 L (13.0-17.5) gm/dL Hct 37.2 L (39.0-53.0) % MCV 89.4 (80.0-100.0) fL MCH 30.8 (25.0-35.0) pg MCHC 34.5 (31.0-37.0) g/dL RDW 13.3 (11.5-15.5) % Plt Count 142 L (150-450) k/uL Neutrophils % 69 % Lymphocytes % 21 % Monocytes % 6 % Eosinophils % 3 % Basophils % 0 % Neutrophils # 5.5 (1.3-7.7) k/uL Lymphocytes # 1.6 (1.0-4.8) k/uL Monocytes # 0.4 (0-1.0) k/uL Eosinophils # 0.2 (0-0.7) k/uL Basophils # 0.0 (0-0.2) k/uL Disposition Clinical Impression: Alcohol induced acute pancreatitis, Abdominal pain Disposition: ADMITTED IP TO THIS HOSP
[2018-07-06 05:28] LABS: ALT 32 U/L (21-72); AST 33 U/L (17-59); Albumin 3.9 g/dL (3.5-5.0); Alkaline Phosphatase 54 U/L (38-126); Amylase 60 U/L (30-110); Anion Gap 8 mmol/L; Blood Urea Nitrogen 20 mg/dL (9-20); Carbon Dioxide 26 mmol/L (22-30); Chloride 104 mmol/L (98-107); Glucose 102 mg/dL (74-99); Lipase 375 U/L (23-300); Potassium 4.4 mmol/L (3.5-5.1); Sodium 138 mmol/L (137-145); Total Bilirubin 0.7 mg/dL (0.2-1.3); Total Protein 6.4 g/dL (6.3-8.2)
[2018-07-06] MEDS: MORPHINE SULFATE 4 MG/ML SYRINGE IV PRN ×5 (06:31→23:03)
[2018-07-06] MEDS: SODIUM CHLORIDE 0.9% 1,000 ML IV SCH ×4 (07:45→21:11)
[2018-07-06] MEDS: PANTOPRAZOLE 40 MG/10 ML VIAL IV SCH (08:31)
--- NOTE | 2018-07-06 10:50 | P.HPIM ---
History of Present Illness H&P Date: 07/06/18 Chief Complaint: Abdominal pain Pleasant 68-year-old gentleman with a past Benes is significant for alcohol- induced pancreatitis who was admitted in [place] in February of this year for the same, comes in with above-mentioned complaints. The patient says that he's been having pain in his epigastric and right upper quadrant since Monday that is since the past 5 days he said that it was starting to improve when he was trying to manage it at home. He had a few extra glasses of wine on Monday and since that time his pain got worse and last night he was having about 8 x 10 intensity pain in the epigastric area radiating to the right upper quadrant and sometimes to the back. He said that he was here in our ER 2 days ago and he was given morphine. Pain was better and he was discharged home. Patient otherwise does not complain of any nausea vomiting, no diarrhea or constipation , no chest racing heart, noting only numbness of his extremities, no cough or shortness of breath, no headache, no loss of vision or blurry vision, no itch and rash. Review of Systems REVIEW OF SYSTEMS: ENT: No diminished vision or hearing. CARDIOVASCULAR: Mentioned earlier. RESPIRATORY: As mentioned earlier. GI: No nauscea, vomiting or diarrhea.. The epigastric and right upper quadrant : No dysuria or retention. NERVOUS SYSTEM: No numbness or weakness. ALLERGY/IMMUNOLOGY: No asthma or hay fever. MUSCULOSKELETAL: As mentioned earlier. HEMATOLOGY/ONCOLOGY: No history of anemia. ENDOCRINE: No history of diabetes or hypothyroidism. CONSTITUTIONAL: As mentioned earlier. DERMATOLOGY: Negative. PSYCHIATRY: Mentioned earlier. RHEUMATOLOGY: Negative. Past Medical History Past Medical History: Atrial Fibrillation, Hyperlipidemia, Hypertension, Skin Disorder Additional Past Medical History / Comment(s): states rt hand from precancerous lesion being removed", alcohol-induced pancreatitis History of Any Multi-Drug Resistant Organisms: None Reported Past Surgical History: Cholecystectomy Past Anesthesia/Blood Transfusion Reactions: No Reported Reaction Past Psychological History: No Psychological Hx Reported Smoking Status: Former smoker Past Alcohol Use History: Occasional Past Drug Use History: None Reported - Past Family History Father Family Medical History: Cancer Additional Family Medical History / Comment(s): lung Mother Family Medical History: Diabetes Mellitus Sister(s) Family Medical History: Renal Disease Medications and Allergies Home Medications Medication Instructions Recorded Confirmed Type Aspirin EC [Ecotrin Low Dose] 81 mg PO DAILY 03/26/17 07/06/18 History Atorvastatin [Lipitor] 20 mg PO DAILY 03/26/17 07/06/18 History Losartan-Hctz 50-12.5 mg [Hyzaar 1 tab PO DAILY 03/26/17 07/06/18 History 50-12.5] Ondansetron [Zofran ODT] 4 mg PO Q8HR #12 tab 07/05/18 07/06/18 Rx Allergies Allergy/AdvReac Type Severity Reaction Status Date / Time levofloxacin [From Levaquin] Allergy Rash/Hives Verified 07/06/18 08:18 Penicillins Allergy Unknown Verified 07/06/18 08:18 Childhood Sulfa (Sulfonamide Allergy Rash/Hives Verified 07/06/18 08:18 Antibiotics) Physical Exam Vitals: Vital Signs Temp Pulse Pulse Resp BP BP Pulse Ox 07/06/18 08:00 12 07/06/18 07:00 97.9 F 57 L 12 158/93 97 07/06/18 06:49 45 L 07/06/18 06:04 97.9 F 47 L 16 153/90 97 07/06/18 04:55 97.4 F L 62 16 150/98 98 Intake and Output 07/05/18 07/06/18 07/06/18 22:59 06:59 14:59 Intake Total 1000 Balance 1000 Intake: Intake, IV Titration 1000 Amount Sodium Chloride 0.9% 1, 1000 000 ml @ 999 mls/hr IV . Q1H1M STA Rx#:[id number] Other: Voiding Method Toilet Weight 70.307 kg On exam, alert and oriented x3. HEENT: Conjunctivae normal. eyes normal. NECK: No JVD. No thyroid enlargement. No LNs CARDIOVASCULAR: S1, S2 muffled. No murmur RESPIRATION: Breath sounds diminished in the bases. No rhonchi or crackles. No bronchial breathing. ABDOMEN: Soft, tender in the epigastric and the right upper quadrant. No guarding. no masses palpable. No ascites, No hepatosplenomegaly.Bowel sounds heard. LEGS: No edema. no swelling NERVOUS SYSTEM: Cranial N 2-12 grossly normal. Moves all 4 limbs. No focal deficits. No sensory deficit. No signs of cerebellar dysfucntion. Skin: no ulcer no rash Joints: No active swelling. No inflammation. Lymphatic system. No LN neck axilla or groin. Results CBC & Chem 7: 07/06/18 05:05 07/06/18 05:05 Labs: Abnormal Lab Results - Last 24 Hours (Table) 07/06/18 07/06/18 Range/Units 05:05 05:05 RBC 4.16 L (4.30-5.90) m/uL Hgb 12.8 L (13.0-17.5) gm/dL Hct 37.2 L (39.0-53.0) % Plt Count 142 L (150-450) k/uL Glucose 102 H (74-99) mg/dL Lipase 375 H (23-300) U/L Thrombosis Risk Factor Assmnt - Choose All That Apply Any of the Below Risk Factors Present?: Yes Each Risk Factor Represents 2 Points: Age 61-74 years Thrombosis Risk Factor Assessment Total Risk Factor Score: 2 Thrombosis Risk Factor Assessment Level: Low Risk Assessment and Plan Assessment: - Acute pancreatitis probably alcohol induced - history of high blood pressure on losartan/HCTZ - Hyperlipidemia - History of A. fib as per the ER notes Plan: - Patient is admitted to [facility] - Patient says that he still has abdominal pain mostly in the right upper quadrant area radiating from the epigastric area - For now we'll continue morphine when necessary, nothing by mouth, IV fluids.- - He says that he is taking Hyzaar for the past 10-15 years and had no problems with it. - For now we will hold off on the Hyzaar as it is known to cause pancreatitis. He might need to discuss with his primary care doctor regarding changing the antihypertensive depending upon the PCPs discretion - DVT and GI prophylaxis - We'll order for lab work in the morning - History the patient pain continues, we'll get a CAT scan at that time - Patient is full code Time with Patient: Greater than 30
[2018-07-06] MEDS: HEPARIN SODIUM,PORCINE 5,000 UNIT/ML 1 ML VIAL SQ SCH ×2 (16:03→23:03)
--- NOTE | 2018-07-06 18:02 | CONS ---
CONSULTATION 68-year-old gentleman who was in the ER recently. He sees my partner, Dr. Zaman as his primary. He was in the ER a couple days ago and had alcohol induced pancreatitis was seen, evaluated and sent home on pain medications. More recently came back into the emergency room on the , complaining of pain that could not be relieved by the pain medications they gave him. The patient does drink wine on a regular basis and has been known to drink heavily in the past. The patient had 4 glasses of wine the day prior to admission. Suffered severe epigastric abdominal pain with nausea. The patient was again evaluated in the emergency room and admitted with a diagnosis of pancreatitis. His initial lipase was over 400 and his repeat lipase was nearly 400. Anyway, the patient was admitted for fluids and pain management. I had a long talk with Mikie today about the importance of alcohol cessation. I doubt he will stop drinking. Anyway, his pain is much better controlled. His nausea is much better controlled. HOME MEDICATIONS: Include aspirin and Lipitor. He is also on losartan HCTZ. He also was given some Zofran. MEDICAL HISTORY: Acute pancreatitis, chronic alcohol abuse, hyperlipidemia, hypertension. Atrial fibrillation and actinic keratosis. ALLERGIES: INCLUDE LEVAQUIN, PENICILLIN, SULFA ANTIBIOTICS. PAST SURGERY HISTORY: Surgical history includes cholecystectomy. SOCIAL HISTORY: Positive for previous tobacco use. Does drink alcohol. No illicit drug use. FAMILY HISTORY: Positive for cancer. REVIEW OF SYSTEMS: CONSTITUTIONAL: Negative. NEUROLOGICAL: Negative. HEENT negative. Cardiovascular negative. Pulmonary negative. GI acute pancreatitis/abdominal pain. negative. Rheumatologic/ hematologic/ negative. Endocrinologic negative. Dermatologic negative. Vital signs are reviewed. Temperature 97.9, heart rate 57, respiratory 12, blood pressure 158/93, mean 114, room air saturation 97%. Appears no acute distress. HEENT examination is grossly unremarkable. Mucous membranes are moist. No oral lesions. NECK: Supple. Full range of motion. No adenopathy or thyromegaly. Cardiovascular examination reveals regular rhythm and rate. S1, S2 normal. No S3, S4, or murmur. LUNGS: Clear. Breath sounds equal. No adventitious lung sounds. Abdomen reveals to be soft. There is tenderness in the epigastric area. Bowel sounds are noted. No masses. Extremities are intact. No cyanosis, clubbing, or edema. Skin without rash. Neurologic examination is brief but nonfocal. LABS: Reviewed. White count 7.9, hemoglobin 12.8, hematocrit 37.2, platelet count 142,000. Glucose 102. Sodium, potassium, chloride, CO2 all normal. Anion gap normal. Kidney function normal. Amylase 60, lipase 375. Medications are reviewed. He is on subcu heparin, morphine for pain control, Narcan, Zofran, Protonix, and a basic IV. No x-rays have been done. ASSESSMENT: 1. Acute pancreatitis secondary to alcohol abuse. 2. Previous episodes of acute pancreatitis. 3. History of atrial fibrillation. 4. History of hyperlipidemia. 5. History of hypertension. 6. History of multiple actinic keratoses. PLAN: The patient is doing reasonably well. He is getting fluid hydration and narcotics for pain control. I had a long talk with him about the importance of alcohol cessation. The patient may or may not quit drinking. The patient recently was seen by 1 of the dermatologists and had some liquid nitrogen treatments to his actinic keratosis. In addition, he uses 5 fluorouracil to some of these lesions as well. The patient is doing well otherwise. We will continue to follow. We will make sure that a copy of this note goes to his primary caregiver, my partner, Dr. Zaman. Discharge hopefully within a couple days. No additional recommendations are made. We will watch the patient carefully for alcohol withdrawal symptoms. MMODL / IJN: [id number] /
[2018-07-07] MEDS: SODIUM CHLORIDE 0.9% 1,000 ML IV SCH ×3 (01:35→11:03)
[2018-07-07] MEDS: MORPHINE SULFATE 4 MG/ML SYRINGE IV PRN (04:39)
[2018-07-07 07:36] LABS: Anion Gap 7 mmol/L; Blood Urea Nitrogen 11 mg/dL (9-20); Calcium 8.2 mg/dL (8.4-10.2); Carbon Dioxide 25 mmol/L (22-30); Chloride 107 mmol/L (98-107); Glucose 81 mg/dL (74-99); Lipase 102 U/L (23-300); Potassium 4.1 mmol/L (3.5-5.1); Sodium 139 mmol/L (137-145)
[2018-07-07] MEDS: HEPARIN SODIUM,PORCINE 5,000 UNIT/ML 1 ML VIAL SQ SCH (09:00)
[2018-07-07] MEDS: PANTOPRAZOLE 40 MG/10 ML VIAL IV SCH (09:00)
[2018-07-07 09:09] VITALS: BP 139/82; PULSE 60; RESP 14; TEMP 98.4
--- NOTE | 2018-07-07 14:00 | P.DS ---
Providers Date of admission: 07/06/18 05:10 Expected date of discharge: 07/07/18 Attending physician: Tima Hutson Primary care physician: Grabiel Austyn Layton Hospital Course: Discharge diagnosis - Acute pancreatitis probably alcohol related - Hypertension - Hyperlipidemia - History of A. fib as per your notes Very pleasant 68-year-old gentleman was admitted for abdominal pain. His lipase was high risk was diagnosed with hepatitis. Was kept nothing by mouth, pain control and IV fluids. His lipase levels slowly started coming down. He was tolerating diet. Today that his on 07/07/2018 His pain is gone and patient complains of no more pain. He is tolerating diet. He otherwise complains of no nausea vomiting, or diarrhea constipation, no tingling numbness of the extremities, and additional rash On exam, alert and oriented x3. HEENT: Conjunctivae normal. eyes normal. NECK: No JVD. No thyroid enlargement. No LNs CARDIOVASCULAR: [place] RESPIRATION: Breath sounds diminished in the bases. No rhonchi or crackles. No bronchial breathing. ABDOMEN: Soft, nontender . No guarding. no masses palpable. No ascites, No hepatosplenomegaly.Bowel sounds heard. LEGS: No edema. no swelling NERVOUS SYSTEM: Cranial N 2-12 grossly normal. Moves all 4 limbs. No focal deficits. No sensory deficit. No signs of cerebellar dysfucntion. Skin: no ulcer no rash Joints: No active swelling. No inflammation. Lymphatic system. No LN neck axilla or groin. Patient does be discharged home and follow up with his primary care doctor Patient Condition at Discharge: Good Plan - Discharge Summary Discharge Rx Participant: Yes New Discharge Prescriptions: Continue Losartan-Hctz 50-12.5 mg [Hyzaar 50-12.5] 1 tab PO DAILY Atorvastatin [Lipitor] 20 mg PO DAILY Aspirin EC [Ecotrin Low Dose] 81 mg PO DAILY Ondansetron [Zofran ODT] 4 mg PO Q8HR #12 tab Discharge Medication List Aspirin EC [Ecotrin Low Dose] 81 mg PO DAILY 03/26/17 [History] Atorvastatin [Lipitor] 20 mg PO DAILY 03/26/17 [History] Losartan-Hctz 50-12.5 mg [Hyzaar 50-12.5] 1 tab PO DAILY 03/26/17 [History] Ondansetron [Zofran ODT] 4 mg PO Q8HR #12 tab 07/05/18 [Rx] Follow up Appointment(s)/Referral(s): Grabiel Zaman MD [Primary Care Provider] - 1-2 days Activity/Diet/Wound Care/Special Instructions: Pls f/u with PCP and discuss regarding the losartan/hctz if you have abd pain again . Discharge Disposition: HOME SELF-CARE
--- NOTE | 2018-07-07 18:00 | PN ---
PROGRESS NOTE This is a 68-year-old male who was admitted with a diagnosis of acute pancreatitis secondary to alcohol use/abuse. He has a previous episode of acute pancreatitis as well. He also has a history of atrial fibrillation, hyperlipidemia, hypertension, and multiple actinic keratoses for which he is using 5 fluorouracil. The patient is doing reasonably well. He states he is still having some pain. He is getting IV fluids and pain control. I did chemical dependency counselor him yesterday extensively about the importance of smoking cessation. I did warn him that he may developed pancreatic endocrine and/or exocrine insufficiency, which would require enzyme replacement or insulin respectively. Anyway, he does understand. His primary care physician is my partner, Dr. Zaman. Current vital signs include temperature 98.4, heart rate 60, respiratory rate 14 , blood pressure 139/82, mean 101, room air saturation 97%. Appears in no acute distress. HEENT examination is grossly unremarkable. Mucous membranes are moist. No oral lesions. Neck is supple. Full range of motion. No adenopathy or thyromegaly. Cardiovascular examination reveals regular rhythm and rate. S1, S2 normal. No S3, S4, or murmur. Lungs reveal clear breath sounds. No wheezes, rhonchi, or crackles. Abdomen is soft. Some mild tenderness appreciated. Bowel sounds are noted. Extremities are intact. No cyanosis, clubbing, or edema. Skin without rash. Neurologic examination is brief but nonfocal. LAB DATA: Reviewed. Currently, his sodium is 139, potassium 4.1, chloride 107, CO2 of 25 , anion gap is 7, BUN and creatinine were 11 and 0.81. His glucose is 81, calcium is 8.2, and his lipase is down from 375 to 102. It was previously 400. No new x-rays to report. MEDICATIONS: Reviewed. He is currently on IV fluids and morphine. He is also on a proton pump inhibitor. ASSESSMENT: 1. Acute pancreatitis secondary to alcohol use/abuse. 2. Previous episodes of acute pancreatitis. 3. History of atrial fibrillation. 4. Hyperlipidemia. 5. History of hypertension. 6. History of multiple actinic keratoses. Plan dated 07/07/2018 Currently, the patient is getting fluids and IV morphine. The patient's lipase has come down nicely. Labs have been reviewed. The patient states that his pain is much better controlled. He is not having any respiratory issues. The patient has been counseled extensively about the importance of curtailing his drinking. I did warn him about the possibility of pancreatic and endocrine and/or exocrine insufficiency. He does understand. Lab data includes a sodium, potassium, chloride and CO2, all of which are normal. BUN and creatinine were 11 and 0.81. Lipase is 102 down from 375. MMODL / IJN: [id number] / [facility]
== END 2018-07-07 14:42 | disposition home or self-care (01) ==
LOC: EC 04:54 → 4SSUR 05:10
PROVIDERS: ADMIT Internal Medicine; ATTEND Internal Medicine
DX: K85.90 Acute pancreatitis without necrosis or infection, unspecified (principal); F10.10 Alcohol abuse, uncomplicated; I10 Essential (primary) hypertension; E78.5 Hyperlipidemia, unspecified; I48.91 Unspecified atrial fibrillation; L57.0 Actinic keratosis; K75.9 Inflammatory liver disease, unspecified; Z90.49 Acquired absence of other specified parts of digestive tract; Z87.891 Personal history of nicotine dependence; Z83.3 Family history of diabetes mellitus; Z80.1 Family history of malignant neoplasm of trachea, bronchus and lung; Z79.82 Long term (current) use of aspirin; Z79.899 Other long term (current) drug therapy; Z88.1 Allergy status to other antibiotic agents; Z88.0 Allergy status to penicillin; Z88.2 Allergy status to sulfonamides
CPT/HCPCS: 96376 ×2; 96361 ×3; 96372 ×2; 96374; 99284; 36415; 80053; 80048; 82150; 83690 ×2; 85025; G0378 ×2; J2270 ×2; J1644 ×2; C9113 ×2

== ENCOUNTER 2019-08-16 19:58 | Emergency (ER) | payer MEDICARE, OTHER ==
[2019-08-16 20:08] VITALS: RESP 20; TEMP 97.7
[2019-08-16] MEDS ORDERED: SODIUM CHLORIDE 0.9% 500 ML 500 ML IV STA (20:37)
[2019-08-16] MEDS ORDERED: SODIUM CHLORIDE 0.9% 1,000 ML IV STA (20:37)
[2019-08-16] MEDS ORDERED: ONDANSETRON 4 MG/2 ML VIAL IVP STA (20:37)
[2019-08-16] MEDS ORDERED: MORPHINE SULFATE 4 MG/ML SYRINGE IV STA (20:37)
--- NOTE | 2019-08-16 20:40 | ED ---
Abdominal Pain HPI - General Chief Complaint: Abdominal Pain Stated Complaint: Abd Pain Time Seen by Provider: 08/16/19 20:10 Source: patient Mode of arrival: ambulatory Limitations: no limitations - History of Present Illness Initial Comments: 69-year-old male patient with past medical history significant for pancreatitis presents to the emergency department today for evaluation of upper abdominal pain. Patient states the pain started around 0200 this morning. Patient admits that he did drink alcohol 2-3 days in a row which she knows causes flares of his pancreatitis. Patient states that this pain feels similar to his previous pancreatitis episodes. States his pain is located in the upper abdomen radiates to the right side. Pain radiates to his back. Denies any nausea or vomiting with this. States he did attempt to decreased food intake today which did not seem to help. States this evening his pain flared out of control and he presen henrry here for further evaluation. Denies any fever or chills. Denies any constipation, diarrhea, or urinary symptoms. States he has had cholecystectomy in the past but no other abdominal surgeries. Denies any chest pain or shortness of breath. Patient denies any recent rash, numbness, tingling, d izziness, weakness, hematuria, dysuria, urinary urgency, urinary frequency, headache, visual changes, or any other complaints. - Related Data Home Medications Medication Instructions Recorded Confirmed Aspirin EC [Ecotrin Low Dose] 81 mg PO DAILY 03/26/17 07/06/18 Atorvastatin [Lipitor] 20 mg PO DAILY 03/26/17 07/06/18 Losartan-Hctz 50-12.5 mg [Hyzaar 1 tab PO DAILY 03/26/17 07/06/18 50-12.5] Previous Rx's Medication Instructions Recorded Ondansetron [Zofran ODT] 4 mg PO Q8HR #12 tab 07/05/18 Hydrocodone/Acetaminophen [Bex[place] 1 tab PO Q6HR PRN #12 tab 08/16/19 5-325] Ondansetron [Zofran ODT] 4 mg PO Q8HR PRN #10 tab 08/16/19 Allergies Allergy/AdvReac Type Severity Reaction Status Date / Time levofloxacin [From Levaquin] Allergy Rash/Hives Verified 08/16/19 20:08 Penicillins Allergy Unknown Verified 08/16/19 20:08 Childhood Sulfa (Sulfonamide Allergy Rash/Hives Verified 08/16/19 20:08 Antibiotics) Review of Systems ROS Statement: Those systems with pertinent positive or pertinent negative responses have been documented in the HPI. ROS Other: All systems not noted in ROS Statement are negative. Past Medical History Past Medical History: Atrial Fibrillation, Hyperlipidemia, Hypertension, Skin Disorder Additional Past Medical History / Comment(s): states rt hand from precancerous lesion being removed", alcohol-induced pancreatitis History of Any Multi-Drug Resistant Organisms: None Reported Past Surgical History: Cholecystectomy Past Anesthesia/Blood Transfusion Reactions: No Reported Reaction Past Psychological History: No Psychological Hx Reported Smoking Status: Former smoker Past Alcohol Use History: Occasional Past Drug Use History: None Reported - Past Family History Father Family Medical History: Cancer Additional Family Medical History / Comment(s): lung Mother Family Medical History: Diabetes Mellitus Sister(s) Family Medical History: Renal Disease General Exam Limitations: no limitations General appearance: alert, in no apparent distress, other (Physical well- developed, well-nourished elderly male patient in no acute distress. Vital signs upon presentation are temperature 97.7F, pulse 52, respirations 20, blood pressure 163/91, pulse ox 97% on room air.) Eye exam: Present: normal appearance, PERRL, EOMI. Absent: scleral icterus, conjunctival injection, periorbital swelling ENT exam: Present: normal exam, normal oropharynx, mucous membranes moist Respiratory exam: Present: normal lung sounds bilaterally. Absent: respiratory distress, wheezes, rales, rhonchi, stridor Cardiovascular Exam: Present: regular rate, normal rhythm, normal heart sounds. Absent: systolic murmur, diastolic murmur, rubs, gallop, clicks GI/Abdominal exam: Present: soft, tenderness (Midepigastric right upper quadrant), normal bowel sounds. Absent: distended, guarding, rebound, rigid Neurological exam: Present: alert, oriented X3, CN II-XII intact Psychiatric exam: Present: normal affect, normal mood Skin exam: Present: warm, dry, intact, normal color. Absent: rash Course Vital Signs 08/16/19 08/16/19 20:06 22:56 Temperature 97.7 F 97.7 F Pulse Rate 52 L 60 Respiratory 20 20 Rate Blood Pressure 163/91 145/71 O2 Sat by Pulse 97 98 Oximetry Medical Decision Making - Medical Decision Making 69-year-old male patient presents to the emergency department today for evaluation of upper abdominal pain. The patient does have history of pancreatitis and states this feels similar. Physical examination did reveal midepigastric tenderness and right upper quadrant tenderness. Labs reviewed and did reveal elevated lipase at 671. I did discuss findings and results with the patient. He was given 2 L of IV fluid here in the emergency department. He is given pain medication. Upon reevaluation he is resting comfortably and states his symptoms are improved. We will attempt outpatient management. He is instructed to follow clear liquid diet for the next 24 hours. He'll be given pa in medication and nausea medication. He is instructed to follow-up with his primary care physician for recheck on Monday. Return parameters were discussed in detail. He verbalizes understanding and agrees with this plan. - Lab Data Result diagrams: 08/16/19 20:34 08/16/19 20:34 Lab Results 08/16/19 08/16/19 08/16/19 Range/Units 20:34 20:34 20:34 WBC 8.1 (3.8-10.6) k/uL RBC 4.34 (4.30-5.90) m/uL Hgb 13.6 (13.0-17.5) gm/dL Hct 39.4 (39.0-53.0) % MCV 90.8 (80.0-100.0) fL MCH 31.3 (25.0-35.0) pg MCHC 34.5 (31.0-37.0) g/dL RDW 13.0 (11.5-15.5) % Plt Count 146 L (150-450) k/uL Neutrophils % 72 % Lymphocytes % 18 % Monocytes % 5 % Eosinophils % 3 % Basophils % 1 % Neutrophils # 5.8 (1.3-7.7) k/uL Lymphocytes # 1.5 (1.0-4.8) k/uL Monocytes # 0.4 (0-1.0) k/uL Eosinophils # 0.2 (0-0.7) k/uL Basophils # 0.0 (0-0.2) k/uL Sodium 137 (137-145) mmol/L Potassium 3.8 (3.5-5.1) mmol/L Chloride 103 (98-107) mmol/L Carbon Dioxide 27 (22-30) mmol/L Anion Gap 7 mmol/L BUN 20 (9-20) mg/dL Creatinine 0.86 (0.66-1.25) mg/dL Est GFR (CKD-EPI)AfAm >90 (>60 ml/min/1.73 sqM) Est GFR (CKD-EPI)NonAf 88 (>60 ml/min/1.73 sqM) Glucose 101 H (74-99) mg/dL Plasma Lactic Acid Toy 0.9 (0.7-2.0) mmol/L Calcium 10.2 (8.4-10.2) mg/dL Total Bilirubin 0.9 (0.2-1.3) mg/dL AST 32 (17-59) U/L ALT 19 (4-49) U/L Alkaline Phosphatase 60 (38-126) U/L Total Protein 7.0 (6.3-8.2) g/dL Albumin 4.2 (3.5-5.0) g/dL Amylase 75 (30-110) U/L Lipase 678 H (23-300) U/L Urine Color Urine Appearance (Clear) Urine pH (5.0-8.0) Ur Specific [place] (1.001-1.035) Urine Protein (Negative) Urine Glucose (UA) (Negative) Urine Ketones (Negative) Urine Blood (Negative) Urine Nitrite (Negative) Urine Bilirubin (Negative) Urine Urobilinogen (<2.0) mg/dL Ur Leukocyte Esterase (Negative) 08/16/19 Range/Units 21:00 WBC (3.8-10.6) k/uL RBC (4.30-5.90) m/uL Hgb (13.0-17.5) gm/dL Hct (39.0-53.0) % MCV (80.0-100.0) fL MCH (25.0-35.0) pg MCHC (31.0-37.0) g/dL RDW (11.5-15.5) % Plt Count (150-450) k/uL Neutrophils % % Lymphocytes % % Monocytes % % Eosinophils % % Basophils % % Neutrophils # (1.3-7.7) k/uL Lymphocytes # (1.0-4.8) k/uL Monocytes # (0-1.0) k/uL Eosinophils # (0-0.7) k/uL Basophils # (0-0.2) k/uL Sodium (137-145) mmol/L Potassium (3.5-5.1) mmol/L Chloride (98-107) mmol/L Carbon Dioxide (22-30) mmol/L Anion Gap mmol/L BUN (9-20) mg/dL Creatinine (0.66-1.25) mg/dL Est GFR (CKD-EPI)AfAm (>60 ml/min/1.73 sqM) Est GFR (CKD-EPI)NonAf (>60 ml/min/1.73 sqM) Glucose (74-99) mg/dL Plasma Lactic Acid Toy (0.7-2.0) mmol/L Calcium (8.4-10.2) mg/dL Total Bilirubin (0.2-1.3) mg/dL AST (17-59) U/L ALT (4-49) U/L Alkaline Phosphatase (38-126) U/L Total Protein (6.3-8.2) g/dL Albumin (3.5-5.0) g/dL Amylase (30-110) U/L Lipase (23-300) U/L Urine Color Yellow Urine Appearance Clear (Clear) Urine pH 6.0 (5.0-8.0) Ur Specific [place] 1.030 (1.001-1.035) Urine Protein Trace H (Negative) Urine Glucose (UA) Negative (Negative) Urine Ketones 2+ H (Negative) Urine Blood Negative (Negative) Urine Nitrite Negative (Negative) Urine Bilirubin Negative (Negative) Urine Urobilinogen <2.0 (<2.0) mg/dL Ur Leukocyte Esterase Negative (Negative) - Radiology Data Radiology results: report reviewed, image reviewed AB x-ray was obtained. Report reviewed in its entirety. Impression by Dr. Ildefonso blum shows nonacute abdomen. No change Disposition Clinical Impression: Pancreatitis Disposition: HOME SELF-CARE Condition: Good Instructions (If sedation given, give patient instructions): Pancreatitis (ED) Additional Instructions: Clear liquid diet for the next 24 hours. Take medications as needed. Follow-up with your primary care physician for recheck on Monday. Return to the emergency department immediately if her symptoms change or worsen. Prescriptions: Hydrocodone/Acetaminophen [Bex[place] 5-325] 1 tab PO Q6HR PRN #12 tab PRN Reason: Pain Ondansetron [Zofran ODT] 4 mg PO Q8HR PRN #10 tab PRN Reason: Nausea Is patient prescribed a controlled substance at d/c from ED?: Yes When asked, does pt state using other controlled substances?: No If prescribed controlled substance>3 days was MAPS reviewed?: Prescribed <3 Days If opioid is for acute pain is fill amount 7 days or less?: Yes If Rx opioid, was Start Talking consent form obtained?: Yes Referrals: Grabiel Zaman MD [Primary Care Provider] - 1-2 days Time of Disposition: 22:46
[2019-08-16 20:48] LABS: Basophils % (A) 1 %; Eosinophils # (A) 0.2 k/uL (0-0.7); Eosinophils % (A) 3 %; HCT 39.4 % (39.0-53.0); HGB 13.6 gm/dL (13.0-17.5); Lymphocytes # (A) 1.5 k/uL (1.0-4.8); Lymphocytes % (A) 18 %; MCH 31.3 pg (25.0-35.0); MCHC 34.5 g/dL (31.0-37.0); MCV 90.8 fL (80.0-100.0); Monocytes # (A) 0.4 k/uL (0-1.0); Monocytes % (A) 5 %; Neutrophils # (A) 5.8 k/uL (1.3-7.7); Neutrophils % (A) 72 %; Platelet Count 146 k/uL (150-450); RBC 4.34 m/uL (4.30-5.90); WBC 8.1 k/uL (3.8-10.6)
[2019-08-16 21:02] LABS: Anion Gap 7 mmol/L; Blood Urea Nitrogen 20 mg/dL (9-20); Carbon Dioxide 27 mmol/L (22-30); Chloride 103 mmol/L (98-107); Glucose 101 mg/dL (74-99); Potassium 3.8 mmol/L (3.5-5.1); Sodium 137 mmol/L (137-145)
[2019-08-16 21:03] LABS: ALT 19 U/L (4-49); AST 32 U/L (17-59); African American GFR (CKD) >90 (>60 ml/min/1.73 sqM); Albumin 4.2 g/dL (3.5-5.0); Alkaline Phosphatase 60 U/L (38-126); Amylase 75 U/L (30-110); Calcium 10.2 mg/dL (8.4-10.2); Non-African American GFR(CKD) 88 (>60 ml/min/1.73 sqM); Total Bilirubin 0.9 mg/dL (0.2-1.3)
--- NOTE | 2019-08-16 21:07 | XR ---
EXAMINATION TYPE: XR KUB DATE OF EXAM: 08/16/2019 COMPARISON: 07/05/2018 HISTORY: Abdominal pain TECHNIQUE: 2 views upright FINDINGS: There is no sign of intestinal obstruction or pneumoperitoneum. Fecal pattern is normal. Th ere are clips from cholecystectomy. Lung bases are clear. There is no evidence of a mass. There are n o pathologic calcifications over the kidneys. IMPRESSION: Nonacute abdomen. No change.
[2019-08-16 21:21] LABS: Appearance,Urine Clear (Clear); Bilirubin,Urine Negative (Negative); Blood,Urine Negative (Negative); Color,Urine Yellow; Glucose,Urine (UA) Negative (Negative); Ketones,Urine 2+ (Negative); Leukocyte Esterase,Urine Negative (Negative); Nitrite,Urine Negative (Negative); Protein,Urine Trace (Negative); Urobilinogen,Urine <2.0 mg/dL (<2.0)
[2019-08-16] MEDS ORDERED: HYDROmorphone 1 MG/ML 1 ML SYRINGE IVP STA ×2 (21:21→22:45)
[2019-08-16] MEDS ORDERED: SODIUM CHLORIDE 0.9% 1,000 ML IV ONE (21:57)
[2019-08-16] MEDS ORDERED: ONDANSETRON 4 MG ODT STARTER PACK 2 TAB BTL PO STA (22:45)
[2019-08-16] MEDS ORDERED: ACET/COD 300 MG/30 MG STARTER PACK 6 TAB BTL PO STA (22:45)
[2019-08-16 22:57] VITALS: BP 145/71; PULSE 60
== END 2019-08-16 22:57 | disposition home or self-care (01) ==
LOC: EC 19:58
DX: K85.90 Acute pancreatitis without necrosis or infection, unspecified (principal); R74.8 Abnormal levels of other serum enzymes; E78.5 Hyperlipidemia, unspecified; I10 Essential (primary) hypertension; Z87.891 Personal history of nicotine dependence; Z88.0 Allergy status to penicillin; Z88.1 Allergy status to other antibiotic agents; Z88.2 Allergy status to sulfonamides; Z79.82 Long term (current) use of aspirin; Z79.899 Other long term (current) drug therapy; Z90.49 Acquired absence of other specified parts of digestive tract; Z53.20 Procedure and treatment not carried out because of patient's decision for unspecified reasons
CPT/HCPCS: 36415; 80053; 82150; 83605; 83690; 85025; 81003; 74018; 99284; 96374; 96375; 96376; 96361 ×2; J2270; J1170; S0119

== ENCOUNTER 2021-02-24 03:34 | Emergency (ER) | payer MEDICARE, OTHER ==
[2021-02-24 03:38] VITALS: TEMP 97.6
[2021-02-24] MEDS ORDERED: SODIUM CHLORIDE 0.9% 500 ML 500 ML IV STA (04:02)
--- NOTE | 2021-02-24 04:17 | ED ---
Arrhythmia/Palpitations HPI - General Chief Complaint: Arrhythmia/Palpitations Stated Complaint: Palpitations Time Seen by Provider: 02/24/21 03:46 Source: patient, RN notes reviewed, old records reviewed Mode of arrival: ambulatory Limitations: no limitations - History of Present Illness Initial Comments: This is a 70-year-old male with history of atrial fibrillation coming in with atrial fibrillation today. Patient presents with history of irregular heartbeat elevated heartbeat as well as slow heartbeat. Patient has no recent travel history no sick contacts. Patient states feels these having palpitations and his heart is elevated. Patient times feels lightheaded but no chest pain. No fevers nausea vomiting recent medication changes MD Complaint: palpitations, irregular heart beat -: hour(s) Context: occurred during rest Associated Symptoms: chest pain, anxiety Treatments Prior to Arrival: other (none) - Related Data Home Medications Medication Instructions Recorded Confirmed Aspirin EC [Ecotrin Low Dose] 81 mg PO DAILY 03/26/17 07/06/18 Atorvastatin [Lipitor] 20 mg PO DAILY 03/26/17 07/06/18 Losartan-Hctz 50-12.5 mg [Hyzaar 1 tab PO DAILY 03/26/17 07/06/18 50-12.5] Previous Rx's Medication Instructions Recorded Ondansetron [Zofran ODT] 4 mg PO Q8HR #12 tab 07/05/18 Hydrocodone/Acetaminophen [[place] 1 tab PO Q6HR PRN #12 tab 08/16/19 5-325] Ondansetron [Zofran ODT] 4 mg PO Q8HR PRN #10 tab 08/16/19 Allergies Allergy/AdvReac Type Severity Reaction Status Date / Time levofloxacin [From Levaquin] Allergy Rash/Hives Verified 02/24/21 03:38 Penicillins Allergy Unknown Verified 02/24/21 03:38 Childhood Sulfa (Sulfonamide Allergy Rash/Hives Verified 02/24/21 03:38 Antibiotics) Review of Systems ROS Statement: Those systems with pertinent positive or pertinent negative responses have been documented in the HPI. ROS Other: All systems not noted in ROS Statement are negative. Past Medical History Past Medical History: Atrial Fibrillation, Hyperlipidemia, Hypertension, Skin Disorder Additional Past Medical History / Comment(s): states rt hand from precancerous lesion being removed", alcohol-induced pancreatitis History of Any Multi-Drug Resistant Organisms: None Reported Past Surgical History: Cholecystectomy Past Anesthesia/Blood Transfusion Reactions: No Reported Reaction Past Psychological History: No Psychological Hx Reported Smoking Status: Never smoker Past Alcohol Use History: Occasional Past Drug Use History: None Reported - Past Family History Father Family Medical History: Cancer Additional Family Medical History / Comment(s): lung Mother Family Medical History: Diabetes Mellitus Sister(s) Family Medical History: Renal Disease General Exam Limitations: no limitations General appearance: anxious Head exam: Present: atraumatic, normocephalic, normal inspection Eye exam: Present: normal appearance, PERRL, EOMI. Absent: scleral icterus, conjunctival injection, periorbital swelling ENT exam: Present: normal exam, mucous membranes moist Neck exam: Present: normal inspection. Absent: tenderness, meningismus, lymphadenopathy Respiratory exam: Present: normal lung sounds bilaterally. Absent: respiratory distress, wheezes, rales, rhonchi, stridor Cardiovascular Exam: Present: normal rhythm, bradycardia, normal heart sounds. Absent: systolic murmur, diastolic murmur, rubs, gallop, clicks GI/Abdominal exam: Present: soft, normal bowel sounds. Absent: distended, tenderness, guarding, rebound, rigid Extremities exam: Present: normal inspection, full ROM, normal capillary refill. Absent: tenderness, pedal edema, joint swelling, calf tenderness Back exam: Present: normal inspection Neurological exam: Present: alert, oriented X3, CN II-XII intact Psychiatric exam: Present: normal affect, normal mood Skin exam: Present: warm, dry, intact, normal color. Absent: rash Course Vital Signs 02/24/21 02/24/21 03:36 05:30 Temperature 97.6 F Pulse Rate 59 L 58 L Respiratory 18 14 Rate Blood Pressure 136/86 125/88 O2 Sat by Pulse 99 98 Oximetry - Reevaluation(s) Reevaluation #1: 02/24/21 Medical record is reviewed Patient symptoms are significantly improved here in the ER Patient is informed and results and questions answered Patient is in no acute distress EKG Findings - EKG Comments: EKG Findings:: EKG shows sinus bradycardia rate of 56 pr 244 QRS 112 QTc 413 Medical Decision Making - Medical Decision Making 70 male to the ER today for evaluation of palpitations. Patient's liver as her normal EKG is normal blood pressure is normal feels well able to ambulate without difficulty no signs or symptoms significantly. Patient remains without chest pain. He can be discharged home - Lab Data Result diagrams: 02/24/21 04:11 02/24/21 04:11 Lab Results 02/24/21 02/24/21 02/24/21 Range/Units 04:11 04:11 04:11 WBC 4.4 (3.8-10.6) k/uL RBC 3.93 L (4.30-5.90) m/uL Hgb 12.9 L (13.0-17.5) gm/dL Hct 36.8 L (39.0-53.0) % MCV 93.7 (80.0-100.0) fL MCH 32.9 (25.0-35.0) pg MCHC 35.1 (31.0-37.0) g/dL RDW 12.9 (11.5-15.5) % Plt Count 144 L (150-450) k/uL MPV 7.4 Neutrophils % 36 % Lymphocytes % 48 % Monocytes % 5 % Eosinophils % 7 % Basophils % 1 % Neutrophils # 1.6 (1.3-7.7) k/uL Lymphocytes # 2.1 (1.0-4.8) k/uL Monocytes # 0.2 (0-1.0) k/uL Eosinophils # 0.3 (0-0.7) k/uL Basophils # 0.0 (0-0.2) k/uL Sodium 137 (137-145) mmol/L Potassium 4.1 (3.5-5.1) mmol/L Chloride 105 (98-107) mmol/L Carbon Dioxide 26 (22-30) mmol/L Anion Gap 6 mmol/L BUN 24 H (9-20) mg/dL Creatinine 0.73 (0.66-1.25) mg/dL Est GFR (CKD-EPI)AfAm >90 (>60 ml/min/1.73 sqM) Est GFR (CKD-EPI)NonAf >90 (>60 ml/min/1.73 sqM) Glucose 97 (74-99) mg/dL Calcium 9.2 (8.4-10.2) mg/dL Phosphorus 4.0 (2.5-4.5) mg/dL Magnesium 1.9 (1.6-2.3) mg/dL Total Bilirubin 0.4 (0.2-1.3) mg/dL AST 36 (17-59) U/L ALT 20 (4-49) U/L Alkaline Phosphatase 45 (38-126) U/L Creatine Kinase 164 (55-170) U/L CK-MB (CK-2) 4.9 H (0.0-2.4) ng/mL Troponin I <0.012 (0.000-0.034) ng/mL NT-Pro-B Natriuret Pep pg/mL Total Protein 6.1 L (6.3-8.2) g/dL Albumin 3.8 (3.5-5.0) g/dL 02/24/21 Range/Units 04:11 WBC (3.8-10.6) k/uL RBC (4.30-5.90) m/uL Hgb (13.0-17.5) gm/dL Hct (39.0-53.0) % MCV (80.0-100.0) fL MCH (25.0-35.0) pg MCHC (31.0-37.0) g/dL RDW (11.5-15.5) % Plt Count (150-450) k/uL MPV Neutrophils % % Lymphocytes % % Monocytes % % Eosinophils % % Basophils % % Neutrophils # (1.3-7.7) k/uL Lymphocytes # (1.0-4.8) k/uL Monocytes # (0-1.0) k/uL Eosinophils # (0-0.7) k/uL Basophils # (0-0.2) k/uL Sodium (137-145) mmol/L Potassium (3.5-5.1) mmol/L Chloride (98-107) mmol/L Carbon Dioxide (22-30) mmol/L Anion Gap mmol/L BUN (9-20) mg/dL Creatinine (0.66-1.25) mg/dL Est GFR (CKD-EPI)AfAm (>60 ml/min/1.73 sqM) Est GFR (CKD-EPI)NonAf (>60 ml/min/1.73 sqM) Glucose (74-99) mg/dL Calcium (8.4-10.2) mg/dL Phosphorus (2.5-4.5) mg/dL Magnesium (1.6-2.3) mg/dL Total Bilirubin (0.2-1.3) mg/dL AST (17-59) U/L ALT (4-49) U/L Alkaline Phosphatase (38-126) U/L Creatine Kinase (55-170) U/L CK-MB (CK-2) (0.0-2.4) ng/mL Troponin I (0.000-0.034) ng/mL NT-Pro-B Natriuret Pep 65 pg/mL Total Protein (6.3-8.2) g/dL Albumin (3.5-5.0) g/dL Disposition Clinical Impression: Palpitations Disposition: HOME SELF-CARE Condition: Good Instructions (If sedation given, give patient instructions): Heart Palpitations (ED) Is patient prescribed a controlled substance at d/c from ED?: No Referrals: Grabiel Zaman MD [Primary Care Provider] - 1-2 days
[2021-02-24 04:35] LABS: Basophils % (A) 1 %; Eosinophils # (A) 0.3 k/uL (0-0.7); Eosinophils % (A) 7 %; HCT 36.8 % (39.0-53.0); HGB 12.9 gm/dL (13.0-17.5); Lymphocytes # (A) 2.1 k/uL (1.0-4.8); Lymphocytes % (A) 48 %; MCH 32.9 pg (25.0-35.0); MCHC 35.1 g/dL (31.0-37.0); MCV 93.7 fL (80.0-100.0); Mean Platelet Volume 7.4; Monocytes # (A) 0.2 k/uL (0-1.0); Monocytes % (A) 5 %; Neutrophils # (A) 1.6 k/uL (1.3-7.7); Neutrophils % (A) 36 %; Platelet Count 144 k/uL (150-450); RBC 3.93 m/uL (4.30-5.90); RDW 12.9 % (11.5-15.5); WBC 4.4 k/uL (3.8-10.6)
[2021-02-24 04:44] LABS: Anion Gap 6 mmol/L; Blood Urea Nitrogen 24 mg/dL (9-20); Carbon Dioxide 26 mmol/L (22-30); Chloride 105 mmol/L (98-107); Glucose 97 mg/dL (74-99); Potassium 4.1 mmol/L (3.5-5.1); Sodium 137 mmol/L (137-145)
[2021-02-24 04:45] LABS: ALT 20 U/L (4-49); AST 36 U/L (17-59); African American GFR (CKD) >90 (>60 ml/min/1.73 sqM); Albumin 3.8 g/dL (3.5-5.0); Alkaline Phosphatase 45 U/L (38-126); Calcium 9.2 mg/dL (8.4-10.2); Creatine Kinase 164 U/L (55-170); Magnesium 1.9 mg/dL (1.6-2.3); Non-African American GFR(CKD) >90 (>60 ml/min/1.73 sqM); Total Bilirubin 0.4 mg/dL (0.2-1.3); Total Protein 6.1 g/dL (6.3-8.2)
[2021-02-24 05:10] LABS: Creatine Kinase MB 4.9 ng/mL (0.0-2.4); Troponin I <0.012 ng/mL (0.000-0.034)
[2021-02-24 05:32] VITALS: BP 125/88; PULSE 58; RESP 14
== END 2021-02-24 05:32 | disposition home or self-care (01) ==
LOC: EC 03:34
DX: R00.2 Palpitations (principal); R07.9 Chest pain, unspecified; E78.5 Hyperlipidemia, unspecified; I10 Essential (primary) hypertension; Z88.0 Allergy status to penicillin; Z88.1 Allergy status to other antibiotic agents; Z88.2 Allergy status to sulfonamides; Z79.899 Other long term (current) drug therapy
CPT/HCPCS: 36415; 80053; 82550; 82553; 83735; 83880; 84100; 84484; 85025; 93005; 96360; 99285

== ENCOUNTER 2021-06-01 05:40 | Inpatient (IN) | payer MEDICARE, OTHER ==
[2021-06-01 06:34] LABS: Basophils % (A) 0 %; Eosinophils # (A) 0.2 k/uL (0-0.7); Eosinophils % (A) 2 %; HCT 39.3 % (39.0-53.0); HGB 13.4 gm/dL (13.0-17.5); Lymphocytes # (A) 1.5 k/uL (1.0-4.8); Lymphocytes % (A) 16 %; MCH 31.6 pg (25.0-35.0); MCV 92.8 fL (80.0-100.0); Monocytes # (A) 0.4 k/uL (0-1.0); Monocytes % (A) 5 %; Neutrophils # (A) 7.2 k/uL (1.3-7.7); Neutrophils % (A) 76 %; Platelet Count 143 k/uL (150-450); RBC 4.23 m/uL (4.30-5.90); RDW 12.8 % (11.5-15.5); WBC 9.5 k/uL (3.8-10.6)
[2021-06-01 06:45] LABS: ALT 20 U/L (4-49); AST 32 U/L (17-59); African American GFR (CKD) >90 (>60 ml/min/1.73 sqM); Alkaline Phosphatase 60 U/L (38-126); Amylase 69 U/L (30-110); Anion Gap 9 mmol/L; Blood Urea Nitrogen 21 mg/dL (9-20); Calcium 9.4 mg/dL (8.4-10.2); Carbon Dioxide 26 mmol/L (22-30); Chloride 104 mmol/L (98-107); Glucose 115 mg/dL (74-99); Lipase 439 U/L (23-300); Non-African American GFR(CKD) 88 (>60 ml/min/1.73 sqM); Sodium 139 mmol/L (137-145); Total Bilirubin 0.8 mg/dL (0.2-1.3); Total Protein 6.8 g/dL (6.3-8.2)
[2021-06-01] MEDS ORDERED: HYDROmorphone 0.5 MG/0.5 ML SYRINGE IVP STA ×2 (07:39→09:58)
--- NOTE | 2021-06-01 08:03 | ED ---
General Adult HPI - General Chief complaint: Abdominal Pain Stated complaint: Abd Pain Time Seen by Provider: 06/01/21 07:00 Source: patient, RN notes reviewed, old records reviewed Mode of arrival: ambulatory Limitations: no limitations - History of Present Illness Initial comments: This is a 70-year-old male who presents emergency Department complaining of right upper quadrant, no pain that radiates to the back. Patient states it started yesterday. Patient states this feels like his pancreatitis was she's had multiple times in the past. Patient also had a cholecystectomy in the past. Patient states he was a little nauseated this morning but he is no longer nauseated. Patient denies any fever chills per patient denies any diarrhea. Patient denies any chest pain difficult breathing shortness of breath. - Related Data Home Medications Medication Instructions Recorded Confirmed Atorvastatin [Lipitor] 20 mg PO HS 03/26/17 06/01/21 Losartan-Hctz 50-12.5 mg [Hyzaar 1 tab PO DAILY 03/26/17 06/01/21 50-12.5] Apixaban [Eliquis] 5 mg PO BID 06/01/21 06/01/21 Naproxen Sodium [Aleve] 220 mg PO DAILY PRN 06/01/21 06/01/21 Allergies Allergy/AdvReac Type Severity Reaction Status Date / Time levofloxacin [From Levaquin] Allergy Rash/Hives Verified 06/01/21 08:44 Penicillins Allergy Rash/Hives Verified 06/01/21 08:44 Sulfa (Sulfonamide Allergy Rash/Hives Verified 06/01/21 08:44 Antibiotics) Review of Systems ROS Statement: Those systems with pertinent positive or pertinent negative responses have been documented in the HPI. ROS Other: All systems not noted in ROS Statement are negative. Past Medical History Past Medical History: Atrial Fibrillation, Hyperlipidemia, Hypertension, Skin Disorder Additional Past Medical History / Comment(s): states rt hand from precancerous lesion being removed", alcohol-induced pancreatitis History of Any Multi-Drug Resistant Organisms: None Reported Past Surgical History: Cholecystectomy Past Anesthesia/Blood Transfusion Reactions: No Reported Reaction Past Psychological History: No Psychological Hx Reported Smoking Status: Never smoker Past Alcohol Use History: Daily Past Drug Use History: None Reported - Past Family History Father Family Medical History: Cancer Additional Family Medical History / Comment(s): lung Mother Family Medical History: Diabetes Mellitus Sister(s) Family Medical History: Renal Disease General Exam - General Exam Comments Initial Comments: GENERAL: Patient is well-developed and well-nourished. Patient is nontoxic and well- hydrated and is in mild distress. ENT: Neck is soft and supple. No significant lymphadenopathy is noted. Oropharynx is clear. Moist mucous membranes. Neck has full range of motion without eliciting any pain. EYES: The sclera were anicteric and conjunctiva were pink and moist. Extraocular movements were intact and pupils were equal round and reactive to light. Eyelids were unremarkable. PULMONARY: Unlabored respirations. Good breath sounds bilaterally. No audible rales rhonchi or wheezing was noted. CARDIOVASCULAR: There is a regular rate and rhythm without any murmurs gallops or rubs ABDOMEN: Mild right upper quadrant abdominal tenderness SKIN: Skin is clear with no lesions or rashes and otherwise unremarkable. NEUROLOGIC: Patient is alert and oriented x3. Cranial nerves II through XII are grossly i ntact. Motor and sensory are also intact. Normal speech, volume and content. Symmetrical smile. MUSCULOSKELETAL: Normal extremities with adequate strength and full range of motion. LYMPHATICS: No significant lymphadenopathy is noted PSYCHIATRIC: Normal psychiatric evaluation. Limitations: no limitations Course Vital Signs 06/01/21 05:46 Temperature 97.7 F Pulse Rate 59 L Respiratory 18 Rate Blood Pressure 141/94 O2 Sat by Pulse 99 Oximetry Medical Decision Making - Medical Decision Making EKG shows sinus bradycardia at 40 bpm VA interval is 228 QRSs 112 QTC intervals 454 QTC is 405. Patient's EKG shows no ST segment elevation or depression. CAT scan shows early pancreatitis. I went back in and the patient's pain had returned at this point time. He would be admitted because the pain keeps returning. Patient got another 0.5 of Dilau did after the initial 0.5 of Dilaudid. - Lab Data Result diagrams: 06/01/21 06:16 06/01/21 06:16 Lab Results 06/01/21 06/01/21 06/01/21 Range/Units 06:16 06:16 06:16 WBC 9.5 (3.8-10.6) k/uL RBC 4.23 L (4.30-5.90) m/uL Hgb 13.4 (13.0-17.5) gm/dL Hct 39.3 (39.0-53.0) % MCV 92.8 (80.0-100.0) fL MCH 31.6 (25.0-35.0) pg MCHC 34.0 (31.0-37.0) g/dL RDW 12.8 (11.5-15.5) % Plt Count 143 L (150-450) k/uL MPV 7.0 Neutrophils % 76 % Lymphocytes % 16 % Monocytes % 5 % Eosinophils % 2 % Basophils % 0 % Neutrophils # 7.2 (1.3-7.7) k/uL Lymphocytes # 1.5 (1.0-4.8) k/uL Monocytes # 0.4 (0-1.0) k/uL Eosinophils # 0.2 (0-0.7) k/uL Basophils # 0.0 (0-0.2) k/uL Sodium 139 (137-145) mmol/L Potassium 4.0 (3.5-5.1) mmol/L Chloride 104 (98-107) mmol/L Carbon Dioxide 26 (22-30) mmol/L Anion Gap 9 mmol/L BUN 21 H (9-20) mg/dL Creatinine 0.85 (0.66-1.25) mg/dL Est GFR (CKD-EPI)AfAm >90 (>60 ml/min/1.73 sqM) Est GFR (CKD-EPI)NonAf 88 (>60 ml/min/1.73 sqM) Glucose 115 H (74-99) mg/dL Plasma Lactic Acid Toy 0.7 (0.7-2.0) mmol/L Calcium 9.4 (8.4-10.2) mg/dL Total Bilirubin 0.8 (0.2-1.3) mg/dL AST 32 (17-59) U/L ALT 20 (4-49) U/L Alkaline Phosphatase 60 (38-126) U/L Troponin I (0.000-0.034) ng/mL Total Protein 6.8 (6.3-8.2) g/dL Albumin 4.0 (3.5-5.0) g/dL Amylase 69 (30-110) U/L Lipase 439 H (23-300) U/L // Range/Units 06:16 WBC (3.8-10.6) k/uL RBC (4.30-5.90) m/uL Hgb (13.0-17.5) gm/dL Hct (39.0-53.0) % MCV (80.0-100.0) fL MCH (25.0-35.0) pg MCHC (31.0-37.0) g/dL RDW (11.5-15.5) % Plt Count (150-450) k/uL MPV Neutrophils % % Lymphocytes % % Monocytes % % Eosinophils % % Basophils % % Neutrophils # (1.3-7.7) k/uL Lymphocytes # (1.0-4.8) k/uL Monocytes # (0-1.0) k/uL Eosinophils # (0-0.7) k/uL Basophils # (0-0.2) k/uL Sodium (137-145) mmol/L Potassium (3.5-5.1) mmol/L Chloride (98-107) mmol/L Carbon Dioxide (22-30) mmol/L Anion Gap mmol/L BUN (9-20) mg/dL Creatinine (0.66-1.25) mg/dL Est GFR (CKD-EPI)AfAm (>60 ml/min/1.73 sqM) Est GFR (CKD-EPI)NonAf (>60 ml/min/1.73 sqM) Glucose (74-99) mg/dL Plasma Lactic Acid Toy (0.7-2.0) mmol/L Calcium (8.4-10.2) mg/dL Total Bilirubin (0.2-1.3) mg/dL AST (17-59) U/L ALT (4-49) U/L Alkaline Phosphatase (38-126) U/L Troponin I <0.012 (0.000-0.034) ng/mL Total Protein (6.3-8.2) g/dL Albumin (3.5-5.0) g/dL Amylase (30-110) U/L Lipase (23-300) U/L Disposition Clinical Impression: Pancreatitis Disposition: ADMITTED IP TO THIS [facility] Referrals: Grabiel Zaman MD [Primary Care Provider] - 1-2 days Time of Disposition: 10:15
--- NOTE | 2021-06-01 08:51 | CT ---
EXAMINATION TYPE: CT abdomen pelvis w con DATE OF EXAM: 06/01/2021 COMPARISON: 03/27/2017 HISTORY: pain, history of pancreatitis CT DLP: 758.3 mGycm Automated exposure control for dose reduction was used. CONTRAST: CT scan of the abdomen pelvis is performed with IV Contrast, patient injected with 100 mL of Isovue 3 00. FINDINGS- LUNG BASES- No significant abnormality is appreciated. Coronary artery calcification noted. LIVER/GB-mild intrahepatic dilation with postcholecystectomy changes.. PANCREAS-there is faint ill definition margins of the head of the pancreas which could relate to mild pancreatitis. Correlate with pancreatic enzymes. Somewhat atrophic changes involving the body and he ad of the pancreas more a localized area of soft tissue fullness near the uncinate process. Measures 2.1 cm. Could not exclude a pancreatic mass. Recommend MRI. SPLEEN- No gross abnormality is seen. ADRENALS- No gross abnormality is seen. KIDNEYS/BLADDER- no hydronephrosis or nephrolithiasis. Hypodensity too small to characterize involvin g the left kidney.. BOWEL-nonspecific abdomen with no obstruction. There is a hiatal hernia. Prostate gland is prominent in size correlate clinically.. There is thickening of the wall the gastric antrum.. LYMPH NODES- No greater than 1cm abdominal or pelvic lymph nodes areappreciated. OSSEOUS STRUCTURES-hypertrophic and degenerative change spine. Arthropathy of the hips.. OTHER- there is ectasia of the iliac arteries bilaterally. Atherosclerotic change of the aorta and b ranch vessels. Prostate gland prominent in size. IMPRESSION- 1. There is faint ill definition margins of the head of the pancreas which could relate to mild pancr eatitis. Correlate with pancreatic enzymes. Somewhat atrophic changes involving the body and head of the pancreas with a more localized area of soft tissue fullness near the uncinate process. Measures 2 .1 cm. Could not exclude a pancreatic or peripancreatic mass. Recommend MRI 2. Prostate hypertrophy correlate with PSA. 3. There is wall thickening of the gastric antrum may be related to incomplete distention, however, c orrelate clinically and if necessary with direct visualization to assess for gastritis or mucosal les ion, mass.
[2021-06-01] MEDS ORDERED: SODIUM CHLORIDE 0.9% 1,000 ML IV ONE (10:15)
[2021-06-01] MEDS: HYDROmorphone 0.5 MG/0.5 ML SYRINGE IVP PRN ×4 (13:21→22:28)
[2021-06-01] MEDS ORDERED: ALPRAZolam 0.25 MG TAB PO PRN (14:23)
[2021-06-01] MEDS ORDERED: TEMAZEPAM 15 MG CAP PO PRN (14:23)
[2021-06-01] MEDS: HYDROcodone/APAP 5-325MG 1 EACH TAB PO PRN ×2 (15:03→21:16)
--- NOTE | 2021-06-01 17:30 | HP ---
HISTORY AND PHYSICAL DATE OF SERVICE: 06/01/2021 CHIEF COMPLAINT: Abdominal pain. HISTORY OF PRESENT ILLNESS: This 70-year-old gentleman with a past medical history of multiple medical problems including atrial fibrillation, hypertension, hyperlipidemia, history of cholecystectomy, previous pancreatitis, being followed by Dr. Zaman in the outpatient setting was complaining of left upper quadrant abdominal pain which radiated to the back, started yesterday and the patient came to [facility] and admitted to the hospital for further evaluation and treatment. The patient had previous cholecystectomy by Dr. Pack. Currently the amylase is 60, and lipase is 439. Patient admitted for further evaluation and treatment. Patient was given pain medications. An abdominal and pelvis CAT scan was also done which I reviewed personally showed ill-defined margins of the head of the pancreas indicating pancreatitis and atrophic changes involving the body and head of the pancreas, also more localized area of soft tissue, fullness near the uncinate process also noted, measures 2.1 cm, prostate hypertrophy was also noted. Wall thickening of the gastric antrum was also noted. The patient admitted for further evaluation and treatment. There is no history of fever, rigors, chills at this time. PAST MEDICAL HISTORY: History of atrial fibrillation, hypertension, hyperlipidemia, history of pancreatitis, previously, cholecystectomy, gallbladder, MEDICATIONS: Aleve, Hyzaar, Lipitor, Eliquis, doses reviewed. ALLERGIES: LEVAQUIN, PENICILLIN AND SULFA. FAMILY HISTORY: History of lung cancer in the family. 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 Quit smoking in 1973. Occasional alcohol intake. REVIEW OF SYSTEMS: ENT: No diminished vision. No diminished hearing. CARDIOVASCULAR system: No angina or palpitations. RESPIRATIONS: No cough or hemoptysis. GI as mentioned earlier. no dysuria or retention. NERVOUS SYSTEM: No numbness or weakness. ALLERGY/IMMUNOLOGY: No asthma or hayfever. MUSCULOSKELETAL: As mentioned earlier. HEMATOLOGY/ONCOLOGY: No history of anemia. ENDOCRINE: No history of diabetes or hypothyroidism. CONSTITUTIONAL: As mentioned earlier. DERMATOLOGY: Negative. RHEUMATOLOGY: Negative. PSYCHIATRIC: As mentioned earlier. PHYSICAL EXAMINATION: Alert and oriented times three. Pulse is 59, blood pressure 141/95, respirations 18, temperature 97.7, pulse ox 99% on room air. HEENT: Conjunctivae normal. NECK: No JVD. CARDIOVASCULAR: S1, S2 muffled. RESPIRATION: Breath sounds diminished in the bases. No rhonchi. No crackles. ABDOMEN: Soft, mild diffuse tenderness present, especially in the upper abdomen and right upper quadrant. No guarding. No rigidity. No mass palpable. No ascites. LEGS: No edema. No swelling. NERVOUS SYSTEM: Higher functions as mentioned earlier. Moves all 4 limbs. No focal motor or sensory deficits. LYMPHATICS: No lymph nodes palpable in the neck, axillae or groin. SKIN: No ulcers, rashes or bleeding. JOINTS: No active deforming arthropathy. LABS: WBC 9.5, hemoglobin 13.4, platelets are 143, and glucose is 115, amylase is 469, lipase is 439. ASSESSMENT: 1. Acute severe pancreatitis. 2. History of previous pancreatitis, gallstone pancreatitis. 3. History of cholelithiasis and cholecystectomy. 4. Increased random blood sugar. 5. Mild thrombocytopenia. 6. Atrial fibrillation. 7. Hypertension. 8. Hyperlipidemia. 9. History of cholecystectomy. 10.FULL CODE. RECOMMENDATIONS AND DISCUSSION: This 70-year-old gentleman who presented with multiple complex medical issues, we will monitor the patient closely,continue the current medications, management and symptomatic treatment. Resume the home medications. Proton pump inhibitors. I would recommend GI consultation. Repeat pancreatic enzymes and the patient would require further followup and further evaluation including MRCP possibly as an outpatient. We will continue to monitor. Guarded prognosis. Further recommendations to follow. A copy of this dictation being forwarded to Dr. Zaman who is the primary physician. MMKEVINL / REGINEN: [id number] / MTDD
[2021-06-02] MEDS: PANTOPRAZOLE 40 MG/10 ML VIAL IVP SCH ×3 (00:37→20:00)
[2021-06-02] MEDS: ATORVASTATIN 20 MG TAB PO SCH ×2 (00:37→20:01)
[2021-06-02] MEDS: APIXABAN 5 MG TAB PO SCH ×2 (00:37→09:21)
[2021-06-02] MEDS: HYDROmorphone 0.5 MG/0.5 ML SYRINGE IVP PRN ×4 (01:59→20:00)
[2021-06-02] MEDS: LOSARTAN-HCTZ 50-12.5 MG 1 EACH TAB PO SCH (09:21)
[2021-06-02 10:50] LABS: Basophils # (A) 0.03 X 10*3/uL (0.00-0.10); Basophils % (A) 0.3 %; Eosinophils # (A) 0.07 X 10*3/uL (0.04-0.35); Eosinophils % (A) 0.7 %; HCT 38.6 % (39.6-50.0); HGB 13.4 g/dL (13.0-17.0); Lymphocytes # (A) 1.17 X 10*3/uL (0.90-5.00); Lymphocytes % (A) 11.5 %; MCH 31.7 pg (27.0-32.0); MCHC 34.7 g/dL (32.0-37.0); MCV 91.3 fL (80.0-97.0); Mean Platelet Volume 9.9 fL (9.5-12.2); Monocytes # (A) 0.68 X 10*3/uL (0.20-1.00); Monocytes % (A) 6.7 %; Neutrophils % (A) 80.4 %; Platelet Count 161 X 10*3/uL (140-440); RBC 4.23 X 10*6/uL (4.40-5.60); RDW 12.7 % (11.5-14.5); WBC 10.19 X 10*3/uL (4.50-10.00)
[2021-06-02 11:19] LABS: African American GFR (CKD) 104.2 (60.0-200.0); Albumin 4.2 g/dL (3.8-4.9); Albumin/Globulin Ratio 1.83 (1.60-3.17); Anion Gap 15.5 mmol/L (4.00-12.00); BUN/Creat Ratio 17.25 Ratio (12.00-20.00); Blood Urea Nitrogen 13.8 mg/dL (9.0-27.0); Calcium 8.9 mg/dL (8.7-10.3); Carbon Dioxide 22.5 mmol/L (21.6-31.8); Globulin 2.3 g/dL (1.6-3.3); Non-African American GFR(CKD) 89.9 (60.0-200.0); Potassium 3.9 mmol/L (3.5-5.5); Total Bilirubin 0.7 mg/dL (0.30-1.20); Total Protein 6.5 g/dL (6.2-8.2)
[2021-06-02] MEDS: HYDROcodone/APAP 5-325MG 1 EACH TAB PO PRN (11:35)
[2021-06-02 12:19] LABS: Glucose,Whole Blood 97 mg/dL (75-99)
[2021-06-02] MEDS: ACETAMINOPHEN TAB 500 MG TAB PO PRN (13:43)
[2021-06-02] MEDS: HYDROmorphone 1 MG/ML 1 ML SYRINGE IVP PRN (13:44)
[2021-06-02] MEDS ORDERED: HYDROcodone/APAP 7.5-325MG 1 EACH TAB PO PRN (15:08)
[2021-06-02] MEDS: SODIUM CHLORIDE 0.9% 1,000 ML IV SCH (16:30)
--- NOTE | 2021-06-02 17:55 | PN ---
PROGRESS NOTE DATE OF SERVICE: 06/02/2021 This 70-year-old gentleman who was admitted with acute severe pancreatitis also had history of recurrent pancreatitis. Patient complains of severe abdominal pain. The amylase and lipase are improving at this time. No chest pain. No palpitations. No fever. PHYSICAL EXAMINATION: Alert and oriented x3. Pulse is 73, blood pressure 152/83, respiration 20, temperature 98.0, pulse ox 94% on room air. HEENT: Conjunctivae normal. NECK: No jugular venous distention. CARDIOVASCULAR: S1, S2 muffled. RESPIRATION: Breath sounds diminished at the bases. No rhonchi. No crackles. ABDOMEN: Soft. Mild diffuse tenderness, especially in the right upper quadrant. No guarding. No rigidity. No mass palpable. LEGS: No edema. No swelling. NERVOUS SYSTEM: No focal deficit. LABS: WBC 10.19, hemoglobin 13.4. COVID-19 is negative. ASSESSMENT: 1. Acute severe pancreatitis with severe abdominal pain. 2. History of recurrent pancreatitis, possibly gallstone pancreatitis. 3. History of cholelithiasis and cholecystectomy. 4. Increased random glucose. 5. Mild thrombocytopenia. 6. Atrial fibrillation. 7. Hypertension. 8. Hyperlipidemia. 9. History of cholecystectomy. 10.FULL CODE. RECOMMENDATIONS AND DISCUSSION: I recommend to continue current medications, continue with symptomatic treatment. Will adjust the pain medications. See orders for details. DVT prophylaxis. Other than that, resume the home medications. Gastroenterology evaluation. Guarded prognosis. Further recommendations to follow. MMODL / IJN: [id number] /
--- NOTE | 2021-06-02 18:37 | CONS ---
CONSULTATION DATE OF SERVICE: June 02, 2021. REQUESTING PHYSICIAN: Dr. Del Real. REASON FOR CONSULTATION: Acute pancreatitis. HISTORY OF PRESENT ILLNESS: The patient is a 70-year-old pleasant white male who was admitted to the hospital with a past medical history of multiple episodes of pancreatitis in the last 4 years and prior history of heavy alcohol abuse who quit drinking about 4 years ago, admitted to the hospital with epigastric and left upper quadrant abdominal pain for the last 2 days duration. The pain was progressively getting worse. He came to the emergency room and was noted to have a slightly elevated lipase at 439. He had his first episode of pancreatitis in 2017 and the last 2 episodes were in 2019. He has been having this epigastric pain associated with some nausea but no emesis. In the emergency room, he did have a CT of the abdomen and pelvis done that showed ill-defined margins of the head of the pancreas consistent with acute pancreatitis with atrophic changes noted in the body and head of the pancreas and also there was some fullness noted, but no obvious mass seen. This morning, he is feeling somewhat better. He still has some epigastric discomfort. No nausea, no vomiting. He quit drinking about 4 years ago. PAST MEDICAL HISTORY: Significant for atrial fibrillation, hypertension, hyperlipidemia. PAST SURGICAL HISTORY: Gallbladder surgery by Dr. Pack 4 years ago. MEDICATIONS: Medications at home include: Aleve, Hyzaar, Lipitor, Eliquis. ALLERGIES: TO LEVAQUIN, PENICILLIN, SULFA. SOCIAL HISTORY: No smoking. History of heavy alcohol abuse for 40 years. He quit drinking 4 years ago. FAMILY HISTORY: Unremarkable. REVIEW OF SYSTEMS: CARDIOPULMONARY: He denies any chest pain, shortness of breath. GENITOURINARY: No dysuria or hematuria. MUSCULOSKELETAL unremarkable. SKIN unremarkable. ENDOCRINE unremarkable. PSYCHIATRIC unremarkable. NEUROLOGY: Unremarkable. ENT/VISION: Unremarkable. CONSTITUTIONAL: No recent weight loss. No fever, chills, night sweats. PHYSICAL EXAMINATION: He appears comfortable. No apparent distress. Vital signs stable. Blood pressure is 133/86. Pulse rate 82 per minute and afebrile. HEENT examination unremarkable. Conjunctivae pink. Sclerae anicteric. Oral cavity no lesions. NECK: No JVD or lymph node enlargement. CHEST was clear to auscultation. HEART: Regular rate and rhythm. ABDOMEN: Soft. There was tenderness in the epigastric and left upper quadrant area. Bowel sounds are positive. No organomegaly. EXTREMITIES: No pedal edema. SKIN: No rashes. NEUROLOGIC: Alert and oriented x3. No focal deficits. LABS: At the time of admission to the hospital WBC 9.5, hemoglobin 13.4, platelets normal. Basic metabolic panel is all within normal limits except for BUN was 21, creatinine 0.85. AST, ALT, T-bilirubin and alkaline phosphatase are normal. Amylase 439 and lipase is 89. Today lipase is down to 88 and amylase is normal. Hansen virus PCR is negative. White count was slightly elevated at 10.19. IMPRESSION: 1. This is a patient who presents to the hospital with epigastric pain of 2 days duration and prior history of pancreatitis at least 4 episodes in the last 4 years. History of heavy alcohol abuse in the past which he tried quitting drinking about 4 years ago but lately has been consuming about 2-3 beers on a daily basis. It is very likely that we are dealing with alcohol-related chronic relapsing pancreatitis. CT of the abdomen showed mild fat stranding in the pancreas consistent with acute pancreatitis. There was fullness noted in the head of the pancreas, but no mass lesion identified. 2. History of alcohol abuse. RECOMMENDATIONS: 1. Continue with symptomatic and supportive care. 2. Pain medications. 3. We will start clear liquids tomorrow morning. 4. Discussed with the patient regarding importance of abstinence from alcohol. 5. I recommended an MRI of the pancreas on outpatient basis once the pancreatitis subsides to rule out other pathology. The plan was discussed with the patient as well as his and they are agreeable to it. Thank you for this consultation. NELDA / JOE: [id number] /
[2021-06-03] MEDS: HYDROmorphone 0.5 MG/0.5 ML SYRINGE IVP PRN ×2 (00:04→04:55)
[2021-06-03] MEDS: ACETAMINOPHEN TAB 500 MG TAB PO PRN ×2 (04:56→12:54)
[2021-06-03] MEDS: SODIUM CHLORIDE 0.9% 1,000 ML IV SCH ×2 (04:58→18:29)
[2021-06-03] MEDS: PANTOPRAZOLE 40 MG/10 ML VIAL IVP SCH ×2 (09:02→20:29)
[2021-06-03] MEDS: LOSARTAN-HCTZ 50-12.5 MG 1 EACH TAB PO SCH (09:04)
[2021-06-03 10:40] LABS: Basophils # (A) 0.02 X 10*3/uL (0.00-0.10); Basophils % (A) 0.2 %; Eosinophils # (A) 0.19 X 10*3/uL (0.04-0.35); Eosinophils % (A) 2.1 %; HCT 36.3 % (39.6-50.0); HGB 12.7 g/dL (13.0-17.0); Lymphocytes # (A) 1.15 X 10*3/uL (0.90-5.00); Lymphocytes % (A) 12.6 %; MCH 31.9 pg (27.0-32.0); MCV 91.2 fL (80.0-97.0); Mean Platelet Volume 9.8 fL (9.5-12.2); Monocytes # (A) 0.65 X 10*3/uL (0.20-1.00); Monocytes % (A) 7.1 %; Neutrophils # (A) 7.08 X 10*3/uL (1.80-7.70); Neutrophils % (A) 77.7 %; Platelet Count 140 X 10*3/uL (140-440); RBC 3.98 X 10*6/uL (4.40-5.60); RDW 12.3 % (11.5-14.5); WBC 9.12 X 10*3/uL (4.50-10.00)
[2021-06-03 11:22] LABS: African American GFR (CKD) 110.6 (60.0-200.0); Albumin 3.7 g/dL (3.8-4.9); Albumin/Globulin Ratio 1.78 (1.60-3.17); Anion Gap 14.5 mmol/L (4.00-12.00); BUN/Creat Ratio 15.05 Ratio (12.00-20.00); Blood Urea Nitrogen 10.4 mg/dL (9.0-27.0); Calcium 8.5 mg/dL (8.7-10.3); Carbon Dioxide 22.6 mmol/L (21.6-31.8); Globulin 2.1 g/dL (1.6-3.3); Non-African American GFR(CKD) 95.5 (60.0-200.0); Potassium 3.9 mmol/L (3.5-5.5); Total Bilirubin 0.7 mg/dL (0.30-1.20); Total Protein 5.8 g/dL (6.2-8.2)
--- NOTE | 2021-06-03 13:14 | PN ---
PROGRESS NOTE DATE OF SERVICE: June 03, 2021 The patient is a 70-year-old pleasant white male admitted to hospital with chronic relapsing pancreatitis, abdominal pain, nausea, vomiting. He is feeling much better today. He was started on a clear liquid diet last night and is requesting for diet to be advanced. The abdominal pain has improved. No further episodes of nausea or vomiting. No fever, chills, night sweats. PHYSICAL EXAMINATION: He appears comfortable. Vital signs stable. Blood pressure is 144/93, pulse is 69, temperature 98.3. HEENT: Examination unremarkable. Conjunctivae pink. Sclerae anicteric. Oral cavity no lesions. Neck no JVD or lymph node enlargement. Chest was clear to auscultation. Heart: Regular rate and rhythm. Abdomen: Soft. Bowel sounds are positive. Mild tenderness in the epigastric area. Extremities: No pedal edema. Neurologic: Alert and oriented x3. No focal deficits. LABS: WBC 9.2, hemoglobin 12, platelets 140. AST, ALT, T-bilirubin, alkaline phosphatase are normal. Lipase is down to 39. IMPRESSION: 1. Chronic relapsing pancreatitis secondary to alcohol abuse. The patient symptoms gradually improving. He had 4 episodes of pancreatitis in the last [address] of the abdomen showed some fat stranding in the pancreas with some haziness in the head of the pancreas recommendations. 2. History of heavy alcohol abuse. RECOMMENDATIONS: 1. I had a lengthy discussion with the patient regarding importance of abstinence from alcohol. 2. The patient currently tolerating clear liquids and advance to a low-fat diet. 3. He was advised to follow up in office in 3-4 weeks at which time we will consider obtaining MRI of the pancreas to rule out any lesions. 4. The plan was discussed with the patient. He is agreeable to it. Thank you for this consultation. MMODL / IJN: [id number] /
--- NOTE | 2021-06-03 15:24 | PN ---
PROGRESS NOTE DATE OF SERVICE: 06/03/2021 This 70-year-old gentleman admitted with abdominal pain and features of acute pancreatitis. The patient had significant pain medications adjusted. Patient is feeling slightly better today. Dr. Antonio recommended outpatient MRI. No chest pain. No palpitations. No fever. EXAM: Alert and oriented. Pulse is 69. Blood pressure 143/90, respiration 20, temperature 98.2, pulse ox 97 percent on room air. HEENT: Conjunctivae normal. Neck: No JVD. Cardiovascular: S1, S2 muffled. Respiratory: Breath sounds diminished in the bases. No rhonchi. No crackles. Abdomen: Soft, nontender. Legs: No edema. No swelling. Nervous system: No focal deficits. LABS: WBC 8, hemoglobin 12.7. Lipase noted. ASSESSMENT: 1. Acute severe pancreatitis, severe abdominal pain, present on admission. 2. History of recurrent pancreatitis, possibly gallstone pancreatitis. 3. History of cholelithiasis and cholecystectomy. 4. Increased random glucose. 5. Mild thrombocytopenia. 6. Atrial fibrillation. 7. Hypertension. 8. Hyperlipidemia. 9. History of cholecystectomy. 10.FULL CODE. RECOMMENDATIONS AND DISCUSSION: Continue current medications, management and symptomatic treatment. Continue with pain medication. Adjust the IV pain medications. Titrate down. Advance diet. Closely follow with Gastroenterology. Repeat labs. Guarded prognosis. Further recommendations to follow. Possible discharge in 24-48 hours. Follow up with Dr. Zaman and Dr. Antonio as outpatient and possibly outpatient MRCP with MRI of the pancreas per Dr. Antonio. Discussed with the patient. MMODL / IJN: [id number] / VELMA
[2021-06-03] MEDS: HYDROmorphone 1 MG/ML 1 ML SYRINGE IVP PRN (18:36)
[2021-06-03] MEDS: ATORVASTATIN 20 MG TAB PO SCH (20:29)
[2021-06-04 02:41] VITALS: RESP 16; TEMP 97.9
[2021-06-04 07:51] VITALS: BP 145/85; PULSE 57
[2021-06-04] MEDS: LOSARTAN-HCTZ 50-12.5 MG 1 EACH TAB PO SCH (08:44)
[2021-06-04] MEDS: SODIUM CHLORIDE 0.9% 1,000 ML IV SCH (08:44)
[2021-06-04] MEDS: PANTOPRAZOLE 40 MG/10 ML VIAL IVP SCH ×2 (08:46→08:51)
[2021-06-04 09:16] LABS: Basophils # (A) 0.04 X 10*3/uL (0.00-0.10); Basophils % (A) 0.7 %; Eosinophils # (A) 0.33 X 10*3/uL (0.04-0.35); Eosinophils % (A) 5.5 %; HCT 34.9 % (39.6-50.0); HGB 11.9 g/dL (13.0-17.0); MCH 30.8 pg (27.0-32.0); MCHC 34.1 g/dL (32.0-37.0); MCV 90.4 fL (80.0-97.0); Monocytes # (A) 0.44 X 10*3/uL (0.20-1.00); Monocytes % (A) 7.3 %; Neutrophils # (A) 3.69 X 10*3/uL (1.80-7.70); Neutrophils % (A) 61.3 %; Platelet Count 147 X 10*3/uL (140-440); RBC 3.86 X 10*6/uL (4.40-5.60); RDW 12.4 % (11.5-14.5); WBC 6.01 X 10*3/uL (4.50-10.00)
[2021-06-04 12:55] LABS: African American GFR (CKD) 104.2 (60.0-200.0); Anion Gap 11.9 mmol/L (4.00-12.00); BUN/Creat Ratio 16.77 Ratio (12.00-20.00); Blood Urea Nitrogen 13.4 mg/dL (9.0-27.0); Calcium 8.8 mg/dL (8.7-10.3); Carbon Dioxide 24.7 mmol/L (21.6-31.8); Non-African American GFR(CKD) 89.9 (60.0-200.0); Potassium 4.3 mmol/L (3.5-5.5)
[2021-06-04] MEDS ORDERED: PANTOPRAZOLE 40 MG TABLET PO SCH (17:30)
--- NOTE | 2021-06-05 12:17 | P.DS ---
Providers Date of admission: 06/02/21 10:52 Expected date of discharge: 06/04/21 Attending physician: Rubin Hernandez Consults: 06/01/21 14:22 Consult Physician Routine Consulting Provider: Christen Antonio Consult Reason/Comments: pancreatitis, abnormal ct Do you want consulting provider notified?: Yes 06/01/21 14:23 Consult Physician Routine Consulting Provider: Grabiel Zaman Consult Reason/Comments: knew the pt Do you want consulting provider notified?: Yes Primary care physician: Grabiel Zaman Hospital Course: Final Diagnosis Acute severe pancreatitis, severe abdominal pain, present on admission History of recurrent pancreatitis, 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 Patient to follow-up with primary care provider Dr. Zaman along with GI Dr. Antonio in the outpatient setting. Total time taken is greater than 35 minutes. Hospital Course This is a 70 year old male who was recently admitted with abdominal pain and features of pancreatitis and was being closely monitored. Patient was evaluated by GI Dr. Antonio and will follow outpatient. Patient instructed to continue full liquid diet for the next few days and slowly advance to low fiber. Avoid alcohol use. 06/04/2021 Patient is seen in follow up this morning and anticipating discharge. Patient was evaluated by GI and recommending close outpatient follow up with possible MRI or MRCP on discharge. Patient abdominal pain improved and is tolerating diet. Patient Labs within normal limits of amylase, lipase. Patient is requesting to go home. at the bedside. Currently no reports of chest pain, shortness of breath, or palpitations. Patient is afebrile. No reports of nausea or vomiting and patient is tolerating diet. Patient will be discharged home today . Guarded prognosis. GENERAL: The patient is alert and oriented x3, Well developed, well nourished. HEENT: Pupils are round and equally reacting to light. EOMI. No scleral icterus. Does have conjunctival pallor. Normocephalic, atraumatic. No pharyngeal erythema. No thyromegaly. CARDIOVASCULAR: S1 and S2 muffled PULMONARY: diminished breath sounds bilaterally with no wheezing or rhonchi noted. ABDOMEN: Soft, non-tender, normoactive bowel sounds. No palpable organomegaly. MUSCULOSKELETAL: No joint swelling or deformity. EXTREMITIES: No cyanosis, clubbing, or pedal edema. NEUROLOGICAL: Gross neurological examination did not reveal any focal deficits. SKIN: No rashes. Please see medication reconcilation for list of current medications. Patient Condition at Discharge: Stable Plan - Discharge Summary Discharge Rx Participant: No New Discharge Prescriptions: New HYDROcodone/APAP 7.5-325MG [[place] 7.5-325] 1 each PO Q6HR PRN #9 tab PRN Reason: Pain Pantoprazole [Protonix] 40 mg PO BID@0730,1730 30 Days #60 tab Acetaminophen Tab [Tylenol] 500 mg PO Q6HR PRN tab PRN Reason: Fever And/ Or Pain Continue Losartan-Hctz 50-12.5 mg [Hyzaar 50-12.5] 1 tab PO DAILY Atorvastatin [Lipitor] 20 mg PO HS Apixaban [Eliquis] 5 mg PO BID Discontinued Naproxen Sodium [Aleve] 220 mg PO DAILY PRN PRN Reason: Pain Discharge Medication List Atorvastatin [Lipitor] 20 mg PO HS 03/26/17 [History] Losartan-Hctz 50-12.5 mg [Hyzaar 50-12.5] 1 tab PO DAILY 03/26/17 [History] Apixaban [Eliquis] 5 mg PO BID 06/01/21 [History] Acetaminophen Tab [Tylenol] 500 mg PO Q6HR PRN tab 06/04/21 [Rx] HYDROcodone/APAP 7.5-325MG [[place] 7.5-325] 1 each PO Q6HR PRN #9 tab 06/04/21 [Rx] Pantoprazole [Protonix] 40 mg PO BID@0730,1730 30 Days #60 tab 06/04/21 [Rx] Follow up Appointment(s)/Referral(s): Grabiel Zaman MD [Primary Care Provider] - 1-2 days Christen Antonio MD [STAFF PHYSICIAN] - 1 Week Activity/Diet/Wound Care/Special Instructions: Activity Limited until follow-up Continue taking medications as prescribed Continue with low-fat bland diet Follow-up with GI in the outpatient setting, possible MRI or MRCP with GI in the outpatient setting follow Up with primary care provider upon discharge Discharge Disposition: HOME SELF-CARE
== END 2021-06-04 12:58 | disposition home or self-care (01) | DRG 440 ==
LOC: EC 05:40 → 6NMEDSUR 10:15 → OBSVTOIN 06-02 10:52 → 6NMEDSUR 06-03 20:44
PROVIDERS: ADMIT Internal Medicine; ATTEND Internal Medicine
DX: K85.90 Acute pancreatitis without necrosis or infection, unspecified (principal); K86.1 Other chronic pancreatitis; D69.6 Thrombocytopenia, unspecified; E78.5 Hyperlipidemia, unspecified; F10.10 Alcohol abuse, uncomplicated; I10 Essential (primary) hypertension; I48.91 Unspecified atrial fibrillation; Z20.822 Contact with and (suspected) exposure to COVID-19; N40.0 Benign prostatic hyperplasia without lower urinary tract symptoms; Z79.01 Long term (current) use of anticoagulants; Z83.3 Family history of diabetes mellitus; Z87.891 Personal history of nicotine dependence; Z90.49 Acquired absence of other specified parts of digestive tract; Z88.2 Allergy status to sulfonamides; Z88.0 Allergy status to penicillin
CPT/HCPCS: 36415; 74177; 80048; 80053; 82150; 83605; 83690; 84484; 85025; 87635; 93005; 96374; 96376; 99285

== ENCOUNTER → 2021-07-20 | Outpatient (CLI) | payer MEDICARE ==
--- NOTE | 2021-07-20 11:22 | MR ---
MR pancreas with and without contrast HISTORY: Chronic pancreatitis, K 86.1 Multiplanar multisequence and postcontrast images obtained through the pancreas following 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 No discrete mas s identified with certainty. Fat planes appear preserved No retroperitoneal adenopathy. Patient is post cholecystectomy. Mild prominence of the intra and extrahepatic biliary ducts likely d ue to postcholecystectomy change. Right and left hepatic ducts show confluence at the level of the pa ncreatic head. No evident choledocholithiasis. Cortical cysts are associated with the left kidney. No hydronephrosis bilaterally. Liver shows no mas s. Lung bases show no effusion. Aorta shows normal caliber. No evident bowel obstruction. Adrenal gla nds are unremarkable. Spleen is normal. No evident gastric mass. IMPRESSION: Lisa is appearance identified on CT at the level of the head of the pancreas shows man esponding signal heterogeneity on MRI. Stability over time favors benign etiology. Consider follow-up to assess for stability
== END | disposition home or self-care (01) ==
LOC: RADMRIMAIN 08:33
PROVIDERS: ATTEND Internal Medicine Gastroenterology
DX: K86.1 Other chronic pancreatitis (principal)
CPT/HCPCS: 74183; A9585

== ENCOUNTER 2021-12-17 05:17 | Emergency (ER) | payer MEDICARE, OTHER ==
[2021-12-17 05:23] VITALS: TEMP 97.9
[2021-12-17 06:16] LABS: Basophils % (A) 1 %; Eosinophils # (A) 0.3 k/uL (0-0.7); Eosinophils % (A) 5 %; HCT 40.4 % (39.0-53.0); HGB 13.4 gm/dL (13.0-17.5); Lymphocytes # (A) 1.6 k/uL (1.0-4.8); Lymphocytes % (A) 31 %; MCHC 33.1 g/dL (31.0-37.0); MCV 90.5 fL (80.0-100.0); Mean Platelet Volume 7.2; Monocytes # (A) 0.3 k/uL (0-1.0); Monocytes % (A) 5 %; Neutrophils # (A) 2.8 k/uL (1.3-7.7); Neutrophils % (A) 56 %; Platelet Count 131 k/uL (150-450); RBC 4.46 m/uL (4.30-5.90); WBC 5.1 k/uL (3.8-10.6)
[2021-12-17 06:25] LABS: INR 0.9 (<1.2); Partial Thromboplastin Time 26.7 sec (22.0-30.0); Prothrombin Time 10.2 sec (9.0-12.0)
[2021-12-17 06:50] LABS: ALT 17 U/L (4-49); AST 32 U/L (17-59); African American GFR (CKD) >90 (>60 ml/min/1.73 sqM); Albumin 3.8 g/dL (3.5-5.0); Alkaline Phosphatase 53 U/L (38-126); Amylase 58 U/L (30-110); Anion Gap 5 mmol/L; Blood Urea Nitrogen 20 mg/dL (9-20); Calcium 8.9 mg/dL (8.4-10.2); Carbon Dioxide 26 mmol/L (22-30); Chloride 107 mmol/L (98-107); Glucose 96 mg/dL (74-99); Lipase 74 U/L (23-300); Magnesium 2.1 mg/dL (1.6-2.3); Non-African American GFR(CKD) 89 (>60 ml/min/1.73 sqM); Potassium 3.9 mmol/L (3.5-5.1); Sodium 138 mmol/L (137-145); Total Bilirubin 0.6 mg/dL (0.2-1.3); Total Protein 6.3 g/dL (6.3-8.2)
--- NOTE | 2021-12-17 06:51 | ED ---
Chest Pain HPI - General Source: patient Mode of arrival: ambulatory Limitations: no limitations - History of Present Illness MD Complaint: other (Epigastric pain) Onset/Timin -: days(s) Onset: during rest Pain Location: epigastric Pain Radiation: none Severity: moderate Quality: aching Consistency: constant Improves With: nothing Worsens With: nothing Treatments Prior to Arrival: none <Fabrizio Man - Last Filed: 12/17/21 08:24> <Maury Schwarz - Last Filed: 12/17/21 09:02> - General Chief Complaint: Chest Pain Stated Complaint: Chest Pain Time Seen by Provider: 12/17/21 05:37 - Related Data Home Medications Medication Instructions Recorded Confirmed Atorvastatin [Lipitor] 20 mg PO HS 03/26/17 06/01/21 Losartan-Hctz 50-12.5 mg [Hyzaar 1 tab PO DAILY 03/26/17 06/01/21 50-12.5] Apixaban [Eliquis] 5 mg PO BID 06/01/21 06/01/21 Previous Rx's Medication Instructions Recorded Acetaminophen Tab [Tylenol] 500 mg PO Q6HR PRN tab 06/04/21 HYDROcodone/APAP 7.5-325MG [[place] 1 each PO Q6HR PRN #9 tab 06/04/21 7.5-325] Pantoprazole [Protonix] 40 mg PO BID@0730,1730 30 Days #60 06/04/21 tab Allergies Allergy/AdvReac Type Severity Reaction Status Date / Time levofloxacin [From Levaquin] Allergy Rash/Hives Verified 12/17/21 05:22 Penicillins Allergy Rash/Hives Verified 12/17/21 05:22 Sulfa (Sulfonamide Allergy Rash/Hives Verified 12/17/21 05:22 Antibiotics) Review of Systems ROS Other: All systems not noted in ROS Statement are negative. Constitutional: Denies: fever, chills Respiratory: Denies: cough, dyspnea Cardiovascular: Denies: chest pain, palpitations, edema Gastrointestinal: Reports: as per HPI, abdominal pain (Epigastric). Denies: nausea, vomiting, diarrhea, constipation Genitourinary: Denies: dysuria, hematuria Musculoskeletal: Denies: back pain Skin: Denies: rash Neurological: Denies: headache, weakness, numbness <Fabrizio Man - Last Filed: 12/17/21 08:24> ROS Other: All systems not noted in ROS Statement are negative. <Maury Schwarz - Last Filed: 12/17/21 09:02> ROS Statement: Those systems with pertinent positive or pertinent negative responses have been documented in the HPI. EKG Findings - EKG Results: EKG: interpreted by ERMD, sinus rhythm, normal ST/T EKG shows: bradycardia (Rate 52 bpm) - Blocks, [place], Hypertrophy, ST Abn: AV and intraventricular conduction: 1 AV block, right bundle branch block (fixed/intermittent, complete/incomplete) (Incomplete) QRS axis and voltage: indeterminate axis <Fabrizio Man - Last Filed: 12/17/21 08:24> Past Medical History Past Medical History: Atrial Fibrillation, Hyperlipidemia, Hypertension, Skin Disorder Additional Past Medical History / Comment(s): states rt hand from precancerous lesion being removed", alcohol-induced pancreatitis History of Any Multi-Drug Resistant Organisms: None Reported Past Surgical History: Cholecystectomy Past Anesthesia/Blood Transfusion Reactions: No Reported Reaction Past Psychological History: No Psychological Hx Reported Smoking Status: Never smoker Past Alcohol Use History: Daily Past Drug Use History: None Reported - Past Family History Father Family Medical History: Cancer Additional Family Medical History / Comment(s): lung Mother Family Medical History: Diabetes Mellitus Sister(s) Family Medical History: Renal Disease <Fabrizio Man - Last Filed: 12/17/21 08:24> General Exam Limitations: no limitations General appearance: alert, in no apparent distress Head exam: Present: atraumatic, normocephalic Eye exam: Present: normal appearance. Absent: scleral icterus, conjunctival injection ENT exam: Present: normal exam Neck exam: Present: normal inspection Respiratory exam: Present: normal lung sounds bilaterally. Absent: respiratory distress, wheezes, rales, rhonchi, stridor Cardiovascular Exam: Present: regular rate, normal rhythm, normal heart sounds. Absent: systolic murmur, diastolic murmur, rubs, gallop GI/Abdominal exam: Present: soft. Absent: distended, tenderness, guarding, rebound, rigid, mass Extremities exam: Present: normal inspection, normal capillary refill. Absent: pedal edema, calf tenderness Back exam: Present: normal inspection. Absent: CVA tenderness (R), CVA tenderness (L) Neurological exam: Present: alert Skin exam: Present: warm, dry, intact, normal color. Absent: rash <DiamondromeoFabrizio - Last Filed: 12/17/21 08:24> Course <Maury Schwarz - Last Filed: 12/17/21 09:02> Vital Signs 12/17/21 12/17/21 05:18 08:20 Temperature 97.9 F Pulse Rate 56 L 62 Respiratory 22 18 Rate Blood Pressure 153/94 134/87 O2 Sat by Pulse 99 99 Oximetry - Reevaluation(s) Reevaluation #1: 12/17/21 08:52 Chest x-ray reviewed by myself reveals no acute process. Computed tomography scan of the abdomen pelvis radiology report shows pancreatitis. 12/17/21 08:58 Case endorsed to me by Dr. Fernández for probable discharge pending computed tomography scan. I to Jolene states patient is not a chest pain patient although this does differ from documentation. Patient reevaluated. Patient denies ever having chest discomfort and states area of discomfort is the epigastrium. Patient does have history of similar symptoms previously associated with pancreatitis. Abdomen soft and nontender. Patient states he is feeling fine at this time. Patient updated on results including lab and CT results. Patient advised admission. Patient refuses a stating he is feeling better. Patient does agree to close follow-up with primary care physician. Patient originally states he is not drinking alcohol and then later states he does have a couple of beers occasionally. (Maury Schwarz) Disposition <Fabrizio Man - Last Filed: 12/17/21 08:24> Is patient prescribed a controlled substance at d/c from ED?: No Time of Disposition: 09:00 <Maury Schwarz - Last Filed: 12/17/21 09:02> Clinical Impression: Pancreatitis Disposition: HOME SELF-CARE Condition: Stable Instructions (If sedation given, give patient instructions): Pancreatitis (ED) Additional Instructions: Liquid diet for the next 24-48 hours. Avoid all alcohol. Return for increased pain, vomiting, fever, chest pain, worsening or change in symptoms or any other concerns. Continue Protonix. Referrals: Grabiel Zaman MD [Primary Care Provider] - 1-2 days Christen Antonio MD [STAFF PHYSICIAN] - 1-2 days
--- NOTE | 2021-12-17 07:21 | XR ---
EXAMINATION TYPE: XR chest 2V DATE OF EXAM: 12/17/2021 COMPARISON: 03/26/2017 INDICATION: Chest pain TECHNIQUE: Frontal and lateral views of the chest are obtained. FINDINGS: The heart size is normal. The pulmonary vasculature is normal. The lungs are clear. There is some tortuosity of the aorta. IMPRESSION: 1. No acute pulmonary process.
[2021-12-17 08:02] LABS: Appearance,Urine Clear (Clear); Bilirubin,Urine Negative (Negative); Blood,Urine Negative (Negative); Color,Urine Yellow; Glucose,Urine (UA) Negative (Negative); Ketones,Urine Negative (Negative); Leukocyte Esterase,Urine Negative (Negative); Nitrite,Urine Negative (Negative); Protein,Urine Negative (Negative); Specific Gravity,Urine 1.019 (1.001-1.035); Urobilinogen,Urine <2.0 mg/dL (<2.0)
[2021-12-17 08:22] VITALS: RESP 18
[2021-12-17] MEDS ORDERED: MORPHINE SULFATE 4 MG/ML SYRINGE IV STA (08:23)
--- NOTE | 2021-12-17 08:48 | CT ---
EXAMINATION TYPE: CT abdomen pelvis wo con DATE OF EXAM: 12/17/2021 HISTORY: Epigastric pain x [address] DLP: 473.4 mGycm. Automated Exposure Control for Dose Reduction was Utilized. TECHNIQUE: CT scan of the abdomen and pelvis is performed without oral or IV contrast. COMPARISON: CT abdomen and pelvis June 01, 2021 FINDINGS: Within the limitations of a non-contrast study, the following observations are made. LUNG BASES: No significant abnormality is appreciated. LIVER/GB: Cholecystectomy clips are redemonstrated. PANCREAS: Moderate generalized fat replaced atrophy with [id number] ill-defined fluid and fat s tranding in the pancreatic head. No well-formed fluid collection is seen. No free air is noted. No gl andular calcifications or ductal dilatation is present. SPLEEN: No significant abnormality is seen. ADRENALS: No significant abnormality is seen. KIDNEYS: There is 4 mm nonobstructing calculus medially in mid to lower pole left kidney on axial guzman ge 30. BOWEL: Suboptimal evaluation without enteric contrast. No suspicious small or large bowel dilatation. Hyperdense material in colon could reflect ingested food product or possible residual contrast if pa tient had recent outside CT. Stomach poorly distended and thus suboptimally evaluated. GENITAL ORGANS: Enlarged prostate consistent with BPH. Adjacent scattered pelvic phleboliths LYMPH NODES: No greater than 1cm abdominal or pelvic lymph nodes are appreciated. OSSEOUS STRUCTURES: No significant abnormality is seen. OTHER: No significant additional abnormality is seen. IMPRESSION: CT findings suggest fairly moderate but uncomplicated acute pancreatitis centered in the pancreatic head.
[2021-12-17] MEDS ORDERED: traMADol 50 MG STARTER PACK 3 TAB BTL PO STA (09:01)
[2021-12-17] MEDS ORDERED: FAMOTIDINE 20 MG/2 ML VIAL IV STA (09:01)
[2021-12-17 09:21] VITALS: BP 130/74; PULSE 51
== END 2021-12-17 09:27 | disposition home or self-care (01) ==
LOC: EC 05:17
DX: K85.90 Acute pancreatitis without necrosis or infection, unspecified (principal); E78.5 Hyperlipidemia, unspecified; I10 Essential (primary) hypertension; I48.91 Unspecified atrial fibrillation; Z79.01 Long term (current) use of anticoagulants; Z88.0 Allergy status to penicillin; Z88.1 Allergy status to other antibiotic agents; Z88.2 Allergy status to sulfonamides; Z90.49 Acquired absence of other specified parts of digestive tract; Z79.899 Other long term (current) drug therapy
CPT/HCPCS: 36415; 93005; 80053; 82150; 83690; 83735; 84484; 85025; 85610; 85730; 81003; 71046; 74176; 99284; 96374; 96375; J2270

== ENCOUNTER → 2022-04-15 | Outpatient (CLI) | payer MEDICARE, OTHER ==
--- NOTE | 2022-04-15 15:50 | US ---
EXAMINATION TYPE: US bladder DATE OF EXAM: 04/15/2022 COMPARISON: NONE CLINICAL HISTORY: N40.1 benign prostatic hyperplasia. assess post void status in patient with BPH TECHNIQUE: Multiple sonographic images of the bladder are obtained. FINDINGS: EXAM MEASUREMENTS: Post Void Residual Volume: 8 mL Normal Post Void Residual (less than 50ml): yes IMPRESSION: Examination is within normal limits
== END | disposition home or self-care (01) ==
LOC: RADUSWWP 15:24
PROVIDERS: ATTEND Family Medicine
DX: N40.1 Benign prostatic hyperplasia with lower urinary tract symptoms (principal)
CPT/HCPCS: 76857

== ENCOUNTER 2022-12-18 21:02 | Emergency (ER) | payer MEDICARE, OTHER ==
[2022-12-18 21:09] VITALS: BP 158/89; PULSE 54; RESP 16; TEMP 98
[2022-12-18] MEDS ORDERED: ASPIRIN 81 MG PO STA (21:37)
--- NOTE | 2022-12-18 21:41 | ED ---
Chest Pain HPI - General Chief Complaint: Chest Pain Stated Complaint: chest pain Time Seen by Provider: 12/18/22 21:12 Source: patient Mode of arrival: ambulatory Limitations: no limitations - History of Present Illness Initial Comments: This patient is 72-year-old man who presents to have reevaluation of chest pain that is substernal and right chest, and radiates towards his right neck. The patient states that it had come on approximately 2 hours ago while he was at rest. The patient did not note any accompanying symptoms. When the pain did not resolve he came to emergency department for evaluation. He states the pain has resolved while he has been here. MD Complaint: chest pain Onset/Timin -: hour(s) Onset: during rest Pain Location: substernal, right chest Pain Radiation: neck Severity: moderate Quality: sharp Consistency: constant Improves With: nothing Worsens With: nothing Treatments Prior to Arrival: none - Related Data Home Medications Medication Instructions Recorded Confirmed Atorvastatin [Lipitor] 20 mg PO DIRECTED 03/26/17 12/18/22 Apixaban [Eliquis] 5 mg PO DIRECTED 06/01/21 12/18/22 Losartan Potassium 50 mg PO DIRECTED 12/18/22 12/18/22 Allergies Allergy/AdvReac Type Severity Reaction Status Date / Time levofloxacin [From Levaquin] Allergy Rash/Hives Verified 12/18/22 21:48 Penicillins Allergy Rash/Hives Verified 12/18/22 21:48 Sulfa (Sulfonamide Allergy Rash/Hives Verified 12/18/22 21:48 Antibiotics) Review of Systems ROS Statement: Those systems with pertinent positive or pertinent negative responses have been documented in the HPI. ROS Other: All systems not noted in ROS Statement are negative. Constitutional: Denies: fever, chills Respiratory: Denies: cough, dyspnea Cardiovascular: Reports: chest pain. Denies: palpitations, dyspnea on exertion, orthopnea, edema, syncope Gastrointestinal: Denies: abdominal pain, nausea, vomiting, diarrhea, constipation Genitourinary: Denies: dysuria, hematuria Musculoskeletal: Denies: back pain Skin: Denies: rash Neurological: Denies: headache, weakness, numbness EKG Findings - EKG Results: EKG: interpreted by ERMD, sinus rhythm EKG shows: bradycardia (Rate 45 bpm) - Blocks, [place], Hypertrophy, ST Abn: AV and intraventricular conduction: 1 AV block, right bundle branch block (fixed/intermittent, complete/incomplete) (Incomplete) QRS axis and voltage: indeterminate axis Past Medical History Past Medical History: Atrial Fibrillation, Hyperlipidemia, Hypertension Additional Past Medical History / Comment(s): states rt hand/nose from precancerous lesion being removed", alcohol-induced pancreatitis History of Any Multi-Drug Resistant Organisms: None Reported Past Surgical History: Cholecystectomy Past Anesthesia/Blood Transfusion Reactions: No Reported Reaction Past Psychological History: No Psychological Hx Reported Smoking Status: Never smoker Past Alcohol Use History: Occasional, Rare Past Drug Use History: None Reported - Past Family History Father Family Medical History: Cancer Additional Family Medical History / Comment(s): lung Mother Family Medical History: Diabetes Mellitus Sister(s) Family Medical History: Renal Disease General Exam Limitations: no limitations General appearance: alert, in no apparent distress Head exam: Present: atraumatic, normocephalic Eye exam: Present: normal appearance. Absent: scleral icterus, conjunctival injection ENT exam: Present: normal oropharynx Neck exam: Present: normal inspection, full ROM Respiratory exam: Present: normal lung sounds bilaterally. Absent: respiratory distress, wheezes, rales, rhonchi, stridor Cardiovascular Exam: Present: normal rhythm, bradycardia (Rate 56 bpm at my exam), normal heart sounds. Absent: systolic murmur, diastolic murmur, rubs, gallop GI/Abdominal exam: Present: soft. Absent: distended, tenderness, guarding, rebound, rigid, mass, pulsatile mass Extremities exam: Present: normal inspection, normal capillary refill. Absent: pedal edema, calf tenderness Back exam: Present: normal inspection. Absent: CVA tenderness (R), CVA tenderness (L) Neurological exam: Present: alert Skin exam: Present: warm, dry, intact, normal color. Absent: rash Course Vital Signs 12/18/22 21:06 Temperature 98.0 F Pulse Rate 54 L Respiratory 16 Rate Blood Pressure 158/89 Chest Pain MDM - MDM The patient had chest x-ray which I interpreted as being negative for infiltrate, congestive heart failure, pneumothorax. This patient is 72-year-old man here to have evaluation of chest pain. The patient's initial workup unremarkable other than some bradycardia on the ECG. I did discuss results with patient and was going to admit the patient to have him seen by cardiology given the moderate bradycardia. The patient is feeling better and would like to go home. He states she will arrange follow-up. He'll return should the symptoms recur but he is asymptomatic through course in emergency department. Was pt. sent in by a medical professional or institution (, [facility], MANAGER ADMINISTRATIVE [employer], urgent care, hospital, or correction...) When possible be specific @ -[No] Did you speak to anyone other than the patient for history (EMS, parent, family, police, friend...)? What history was obtained from this source @ -[No] Did you review nursing and triage notes (agree or disagree)? Why? @ -[I reviewed and agree with nursing and triage notes] Were old charts reviewed (outside hosp., previous admission, EMS record, old EKG, old radiological studies, urgent care reports/EKG's, correction records)? Report findings @ -[No old charts were reviewed] Differential Diagnosis (chest pain, altered mental status, abdominal pain women, abdominal pain men, vaginal bleeding, weakness, fever, dyspnea, syncope, headache, dizziness, GI bleed, back pain, seizure, CVA, palpatations, mental health, musculoskeletal)? @ -[Differential Chest Pain: Stable Angina, Unstable Angina, STEMI, NSTEMI Aortic Dissection, Pneumothorax, Musculoskeletal, Esophageal Spasm GERD, Cholecystitis, Pancreatitis, Zoster, this is not meant to be an all-inclusive list. EKG interpreted by me (3pts min.). @ -[As above] X-rays interpreted by me (1pt min.). @ -[As above CT interpreted by me (1pt min.). @ -[None done] U/S interpreted by me (1pt. min.). @ -[None done] What testing was considered but not performed or refused? (CT, X-rays, U/S, labs)? Why? @ -[None] What meds were considered but not given or refused? Why? @ -[None] Did you discuss the management of the patient with other professionals (professionals i.e. [facility] Nelson, [employer], lab, RT, psych nurse, perinatal social worker, senior tableau developer, teacher, chief creative officer, data architect manager)? Give summary @ -[No] Was smoking cessation discussed for >3mins.? @ -[No] Was critical care preformed (if so, how long)? @ -[No] Were there social determinants of health that impacted care today? How? (Homelessness, low income, unemployed, alcoholism, drug addiction, transportation, low edu. Level, literacy, decrease access to med. care, custodial, rehab)? @ -[No] Was there de-escalation of care discussed even if they declined (Discuss DNR or withdrawal of care, Hospice)? DNR status @ -[No] What co-morbidities impacted this encounter? (DM, HTN, Smoking, COPD, CAD, Cancer, CVA, ARF, Chemo, Hep., AIDS, mental health diagnosis, sleep apnea, morbid obesity)? @ -[None] Was patient admitted / discharged? Hospital course, mention meds given and route, prescriptions, significant lab abnormalities, going to OR and other pertinent info. @ -[Discharged, as above Undiagnosed new problem with uncertain prognosis? @ -[No] Drug Therapy requiring intensive monitoring for toxicity (Heparin, Nitro, Insulin, Cardizem)? @ -[No] Were any procedures done? @ -[No] Diagnosis/symptom? @ -Acute chest pain Bradycardia Acute, or Chronic, or Acute on Chronic? @ -[default] Uncomplicated (without systemic symptoms) or Complicated (systemic symptoms)? @ -[Uncomplicated Side effects of treatment? @ -[No] Exacerbation, Progression, or Severe Exacerbation? @ -[No] Poses a threat to life or bodily function? How? (Chest pain, USA, CT, pneumonia, PE, COPD, DKA, ARF, appy, cholecystitis, CVA, Diverticulitis, Homicidal, Donovan icidal, threat to staff... and all critical care pts) @ -[Undetermined, pending cardiology evaluation Disposition Clinical Impression: Chest pain Disposition: HOME SELF-CARE Condition: Good Instructions (If sedation given, give patient instructions): Chest Pain (ED) Is patient prescribed a controlled substance at d/c from ED?: No Referrals: Godfrey Wynn DO [Primary Care Provider] - 1-2 days
[2022-12-18 22:04] LABS: Basophils % (A) 0 %; Eosinophils # (A) 0.1 k/uL (0-0.7); Eosinophils % (A) 3 %; HCT 39.7 % (39.0-53.0); HGB 13.3 gm/dL (13.0-17.5); Lymphocytes # (A) 2.2 k/uL (1.0-4.8); Lymphocytes % (A) 46 %; MCH 30.5 pg (25.0-35.0); MCHC 33.5 g/dL (31.0-37.0); Mean Platelet Volume 7.5; Monocytes # (A) 0.3 k/uL (0-1.0); Monocytes % (A) 6 %; Neutrophils % (A) 43 %; Platelet Count 149 k/uL (150-450); RBC 4.36 m/uL (4.30-5.90); RDW 13.2 % (11.5-15.5); WBC 4.8 k/uL (3.8-10.6)
[2022-12-18 22:10] LABS: ALT 29 U/L (4-49); AST 40 U/L (17-59); African American GFR (CKD) >90 (>60 ml/min/1.73 sqM); Albumin 4.4 g/dL (3.5-5.0); Alkaline Phosphatase 49 U/L (38-126); Amylase 72 U/L (30-110); Anion Gap 12 mmol/L; Blood Urea Nitrogen 21 mg/dL (9-20); Calcium 9.2 mg/dL (8.4-10.2); Carbon Dioxide 26 mmol/L (22-30); Chloride 102 mmol/L (98-107); Glucose 81 mg/dL (74-99); Lipase 61 U/L (23-300); Magnesium 2.2 mg/dL (1.6-2.3); Non-African American GFR(CKD) 87 (>60 ml/min/1.73 sqM); Potassium 3.9 mmol/L (3.5-5.1); Sodium 140 mmol/L (137-145); Total Bilirubin 0.6 mg/dL (0.2-1.3)
--- NOTE | 2022-12-18 22:13 | XR ---
EXAMINATION TYPE: XR chest 2V DATE OF EXAM: 12/18/2022 9:58 PM COMPARISON: Chest x-ray 12/17/2021 TECHNIQUE: XR chest 2V . CLINICAL INDICATION:Male, 72 years old with history of Chest Pain; FINDINGS: Lungs/Pleura: There is no evidence of pleural effusion, focal consolidation, or pneumothorax. Pulmonary vascularity: Unremarkable. Heart/mediastinum: Cardiomediastinal silhouette is unremarkable. Musculoskeletal: No acute osseous pathology. IMPRESSION: No acute cardiopulmonary disease/process.
[2022-12-18 22:17] LABS: Partial Thromboplastin Time 25.2 sec (22.0-30.0); Prothrombin Time 10.5 sec (9.0-12.0)
== END 2022-12-18 23:15 | disposition home or self-care (01) ==
LOC: EC 21:02
DX: R07.89 Other chest pain (principal); E78.5 Hyperlipidemia, unspecified; I10 Essential (primary) hypertension; I48.91 Unspecified atrial fibrillation; Z88.2 Allergy status to sulfonamides; Z88.1 Allergy status to other antibiotic agents; Z88.0 Allergy status to penicillin; Z79.01 Long term (current) use of anticoagulants; Z79.899 Other long term (current) drug therapy
CPT/HCPCS: 36415; 71046; 80053; 82150; 83690; 83735; 84484; 85025; 85379; 85610; 85730; 93005; 99285